=== PATIENT | male | born 1940 | race Caucasian/White ===

== ENCOUNTER 2017-06-20 16:05 | Inpatient (IN) | payer OTHER ==
[~2017-06-20] VITALS: Ht 172.7 cm; Wt 111.9 kg
[~2017-06-20 16:05] MED LIST: ALB5IS NEB; ALBUAER3 IN; ALLO100T; BUDE0.5S IN; DOC100C PO; FLUO40CA PO; INSR100KIT SC; SIMV-8 PO
[2017-06-20 16:51] LABS: Basophils # (auto) 0.1 uL; Basophils % (auto) 0.7 % (0.0-2.0); Eosinophils # (auto) 0.3 uL; Hematocrit 40.8 % (41.0-53.0); Hemoglobin 13.7 g/dL (13.5-17.5); Lymphocytes # (auto) 2.5 uL; Lymphocytes % (auto) 26.3 % (10.0-50.0); Mean Corpuscular Hemoglobin 28.8 pg (28.0-32.0); Mean Corpuscular Hgb Conc. 33.6 g/dL (32.0-36.0); Mean Corpuscular Volume 85.7 fL (80.0-100.0); Monocytes # (auto) 0.9 uL; Monocytes % (auto) 9.6 % (0.0-12.0); Neutrophils # (auto) 5.8 uL; Neutrophils % (auto) 60.4 % (37.0-80.0); Nucleated Red Blood Cells % 0.2 %; Platelet Count (auto) 271 10^3/uL (140-450); Red Blood Cells 4.76 10^6/uL (4.5-5.90); Red Cell Distribution Width 14.4 % (11.8-14.3); White Blood Cell 9.6 10^3/uL (4.4-10.8)
[2017-06-20 17:17] LABS: Alanine Aminotransferase 36 U/L (16-61); Albumin 3.6 g/dL (3.4-5.0); Alkaline Phosphatase 113 U/L (45-117); Anion Gap 13 (5-15); Aspartate Aminotransferase 25 U/L (15-37); BUN/Creatinine Ratio 12.4; Bilirubin, Total 0.5 mg/dL (0.2-1.0); Blood Urea Nitrogen 28 mg/dL (7-18); Calcium 7.7 mg/dL (8.5-10.1); Carbon Dioxide 24 mmol/L (21-32); Chloride 94 mmol/L (98-107); GFR African American 36 mL/min; GFR Non-African American 30 mL/min; Glucose 396 mg/dL (74-106); Magnesium 2.9 mg/dL (1.6-2.6); Potassium 5.2 mmol/L (3.5-5.1); Sodium 131 mmol/L (136-145); Total Protein 7.6 g/dL (6.4-8.2)
[2017-06-20 17:23] LABS: INR 0.85 (0.9-1.15); Prothrombin Time 9.2 sec (9.37-12.3)
[2017-06-20] MEDS ORDERED: AZITHROMYCIN 500MG/ 250ML 250 ML IV ONE (17:45)
[2017-06-20] MEDS ORDERED: cefTRIAXone 1GM/10ml IVPUSH 10 ML IV ONE (17:45)
[2017-06-20] MEDS ORDERED: ALBUTEROL SULF 2.5 MG/0.5ML(0.5%) NEB SOLN NEB STA (18:07)
[2017-06-20] MEDS ORDERED: DEXTROSE (50%) 50ML SYRG IV ONE (18:15)
[2017-06-20] MEDS ORDERED: InsuLIN REG 1unit/0.01ml Soln (100units/ml) SC ONE (18:15)
[2017-06-20] MEDS ORDERED: SODIUM BICARBONATE 8.4% INJ 50ML SYRINGE IV ONE (18:15)
[2017-06-20] MEDS ORDERED: CALCIUM GLUC 4.65meq/50ml D5AE 50 ML IV ONE (18:15)
[2017-06-20] MEDS ORDERED: IPRATROPIUM BROM 0.5 MG/2.5ML INH SOL NEB ONE (18:15)
[2017-06-20] MEDS ORDERED: InsuLIN REG 1unit/0.01ml Soln (100units/ml) IV ONE (18:15)
[2017-06-20] MEDS ORDERED: methylPREDNISolone SOD SUCC 125 MG/2 ML VL IV ONE (18:15)
[2017-06-20] MEDS ORDERED: ALBUTEROL SULF 2.5 MG/0.5ML(0.5%) NEB SOLN NEB ONE (18:15)
[2017-06-20 18:45] LABS: Lactic Acid w/Reflex 2.5 mmol/L (0.4-2.0)
[2017-06-20] MEDS ORDERED: LORazepam 0.5 MG TAB PO PRN (19:00)
[2017-06-20] MEDS ORDERED: DOCUSATE SOD 100 MG CAP PO PRN (19:00)
[2017-06-20] MEDS ORDERED: NITROGLYCERIN 0.4 MG SL TAB SL PRN (19:00)
[2017-06-20] MEDS ORDERED: SODIUM POLYSTYRENE SULF 15GM/60ML SUSP PO ONE (19:00)
[2017-06-20] MEDS ORDERED: MORPHINE SULFATE 4 MG/ML SYR/VIAL IV PRN (19:00)
[2017-06-20] MEDS ORDERED: HYDROcodone-ACET 5/325MG TAB PO PRN (19:00)
[2017-06-20] MEDS ORDERED: ACETAMINOPHEN 500 MG TAB PO PRN (19:00)
[2017-06-20] MEDS ORDERED: LACTULOSE 20Gm/30ML SOLN PO PRN ×2 (19:00)
[2017-06-20] MEDS ORDERED: OSELTAMIVIR 75 MG CAP PO ONE (19:00)
[2017-06-20] MEDS ORDERED: DEXTROSE (50%) 50ML SYRG IV PRN (19:00)
[2017-06-20] MEDS ORDERED: ALBUTEROL SULF 2.5 MG/0.5ML(0.5%) NEB SOLN NEB PRN (19:00)
[2017-06-20] MEDS: SODIUM CHLORIDE 0.9% 1,000 ML IV SCH (19:56)
[2017-06-20] MEDS: ACCU-CHEK COMFORT CURVE STRIP VI SCH (20:00)
[2017-06-20] MEDS: InsuLIN REG 1unit/0.01ml Soln (100units/ml) SC SCH (20:00)
[2017-06-20 20:22] VITALS: BP 115/74
[2017-06-20 20:30] VITALS: BP 119/76
[2017-06-20] MEDS ORDERED: PANTOPRAZOLE 40 MG/10 ML VIAL IV ONE (20:30)
[2017-06-20] MEDS ORDERED: OSELTAMIVIR 30 MG CAP PO ONE (20:30)
[2017-06-20 21:20] LABS: CRP High Sensitivity 0.46 mg/dL (< 0.3)
[2017-06-20] MEDS: METOPROLOL TARTRATE 25 MG TAB PO SCH (21:32)
[2017-06-20 22:00] VITALS: BP 119/76
[2017-06-20] MEDS ORDERED: OSELTAMIVIR 30 MG CAP PO SCH (22:00)
[2017-06-20] MEDS ORDERED: OSELTAMIVIR 75 MG CAP PO SCH (22:00)
[2017-06-20] MEDS: TEMAZEPAM 15 MG CAP PO PRN (22:11)
[2017-06-20] MEDS: MORPHINE SULFATE 4 MG/ML SYR/VIAL IV PRN (23:04)
[2017-06-21] MEDS: IPRATROPIUM BROM 0.5 MG/2.5ML INH SOL NEB SCH ×4 (00:05→19:30)
[2017-06-21] MEDS: ALBUTEROL SULF 2.5 MG/0.5ML(0.5%) NEB SOLN NEB SCH ×4 (00:05→19:30)
[2017-06-21] MEDS: BUDESONIDE (INHALATION) 0.5 MG/2 ML NEB NEB SCH ×3 (00:07→19:35)
[2017-06-21] MEDS: ACCU-CHEK COMFORT CURVE STRIP VI SCH ×7 (00:14→23:49)
[2017-06-21] MEDS: InsuLIN REG 1unit/0.01ml Soln (100units/ml) SC SCH ×7 (00:14→23:50)
[2017-06-21 00:54] LABS: Hemoglobin 12.5 g/dL (13.5-17.5)
[2017-06-21 01:03] LABS: Alcohol, Urine < 3.0 mg/dL (0-5); Amphetamine Screen, Urine NEGATIVE (NEGATIVE); Barbiturate Scree,Urine NEGATIVE (NEGATIVE); Benzodiazephine Screen, Urine NEGATIVE (NEGATIVE); Cannabinoid Screen, Urine NEGATIVE (NEGATIVE); Cocaine Screen, Urine NEGATIVE (NEGATIVE); Opiate Scree,Urine NEGATIVE (NEGATIVE); Phencyclidine Screen, Urine NEGATIVE (NEGATIVE)
[2017-06-21 01:13] LABS: Urine Bacteria FEW /hpf (None Seen); Urine Blood Negative /uL (Negative); Urine Hyaline Cast FEW /lpf (0 - 2); Urine Mucus FEW (None Seen); Urine Specific Gravity 1.018 (1.001-1.035); Urine WBC 6 /hpf (0 - 3)
[2017-06-21] MEDS: PROMETHAZINE HCL 25 MG/ML 1ML IV PRN ×2 (03:15→20:19)
[2017-06-21] MEDS: MORPHINE SULFATE 4 MG/ML SYR/VIAL IV PRN ×3 (03:15→20:19)
[2017-06-21 05:00] VITALS: BP 118/90
[2017-06-21 06:12] LABS: Basophils # (auto) 0 uL; Basophils % (auto) 0.1 % (0.0-2.0); Eosinophils # (auto) 0 uL; Eosinophils % (auto) 0.1 % (0.0-7.0); Hematocrit 36.6 % (41.0-53.0); Hemoglobin 12.5 g/dL (13.5-17.5); Lymphocytes % (auto) 12.3 % (10.0-50.0); Mean Corpuscular Hemoglobin 29.4 pg (28.0-32.0); Mean Corpuscular Hgb Conc. 34.3 g/dL (32.0-36.0); Mean Corpuscular Volume 85.7 fL (80.0-100.0); Monocytes # (auto) 0.1 uL; Monocytes % (auto) 0.9 % (0.0-12.0); Neutrophils # (auto) 7.2 uL; Neutrophils % (auto) 86.6 % (37.0-80.0); Platelet Count (auto) 183 10^3/uL (140-450); Red Blood Cells 4.27 10^6/uL (4.5-5.90); Red Cell Distribution Width 14.3 % (11.8-14.3); White Blood Cell 8.3 10^3/uL (4.4-10.8)
[2017-06-21 06:27] LABS: Albumin 3.3 g/dL (3.4-5.0); BUN/Creatinine Ratio 11.6; Bilirubin, Total 0.4 mg/dL (0.2-1.0); Calcium 7.7 mg/dL (8.5-10.1); Potassium 4.7 mmol/L (3.5-5.1)
[2017-06-21] MEDS: SODIUM CHLORIDE 0.9% 1,000 ML IV SCH ×2 (08:09→21:54)
[2017-06-21 09:00] VITALS: BP 155/93
[2017-06-21 09:04] LABS: Hematocrit 34.6 % (41.0-53.0); Hemoglobin 11.4 g/dL (13.5-17.5)
[2017-06-21] MEDS ORDERED: PANTOPRAZOLE 40 MG TAB PO SCH (10:00)
[2017-06-21] MEDS ORDERED: ENOXAPARIN SOD 40 MG/0.4 ML SYRINGE SC SCH (10:00)
[2017-06-21] MEDS ORDERED: ASPirin 81 mg TAB PO SCH (10:00)
[2017-06-21] MEDS: cefTRIAXone 1GM/10ml IVPUSH 10 ML IV SCH (10:40)
[2017-06-21] MEDS: AZITHROMYCIN 500MG/ 250ML 250 ML IV SCH (10:40)
[2017-06-21] MEDS: FLUoxetine HCL 20 MG CAP PO SCH (10:44)
[2017-06-21] MEDS: PANTOPRAZOLE 40 MG TAB PO SCH (10:44)
[2017-06-21] MEDS: METOPROLOL TARTRATE 25 MG TAB PO SCH ×2 (10:44→21:53)
[2017-06-21] MEDS: ALLOPURINOL 100 MG TAB PO SCH (10:45)
[2017-06-21 11:58] LABS: Hematocrit 34.5 % (41.0-53.0); Hemoglobin 11.3 g/dL (13.5-17.5)
[2017-06-21 13:00] VITALS: BP 139/87
[2017-06-21 16:39] VITALS: BP 136/86
[2017-06-21] MEDS ORDERED: PATIENTS OWN MEDICATION (Simvastatin 1 TAB) PO SCH (18:00)
[2017-06-21 21:31] VITALS: BP 139/92
[2017-06-21] MEDS: ATORVASTATIN 20 MG TAB PO SCH (21:53)
[2017-06-21] MEDS: TEMAZEPAM 15 MG CAP PO PRN (21:53)
[2017-06-21] MEDS ORDERED: TEMAZEPAM 15 MG CAP PO ONE (22:30)
[2017-06-22] MEDS: IPRATROPIUM BROM 0.5 MG/2.5ML INH SOL NEB SCH ×4 (00:57→19:35)
[2017-06-22] MEDS: ALBUTEROL SULF 2.5 MG/0.5ML(0.5%) NEB SOLN NEB SCH ×4 (00:57→19:35)
[2017-06-22] MEDS: InsuLIN REG 1unit/0.01ml Soln (100units/ml) SC SCH ×6 (03:48→23:53)
[2017-06-22] MEDS: ACCU-CHEK COMFORT CURVE STRIP VI SCH ×6 (03:48→23:52)
[2017-06-22 05:26] VITALS: BP 119/57
[2017-06-22 07:16] LABS: Basophils # (auto) 0 uL; Eosinophils # (auto) 0 uL; Hematocrit 34.8 % (41.0-53.0); Hemoglobin 11.5 g/dL (13.5-17.5); Lymphocytes # (auto) 1.6 uL; Lymphocytes % (auto) 11.8 % (10.0-50.0); Mean Corpuscular Hgb Conc. 33.1 g/dL (32.0-36.0); Mean Corpuscular Volume 84.6 fL (80.0-100.0); Monocytes # (auto) 0.8 uL; Monocytes % (auto) 5.5 % (0.0-12.0); Neutrophils # (auto) 11.4 uL; Neutrophils % (auto) 82.7 % (37.0-80.0); Platelet Count (auto) 195 10^3/uL (140-450); Red Blood Cells 4.12 10^6/uL (4.5-5.90); Red Cell Distribution Width 14.7 % (11.8-14.3); White Blood Cell 13.8 10^3/uL (4.4-10.8)
[2017-06-22 07:35] LABS: BUN/Creatinine Ratio 20.3; Calcium 7.7 mg/dL (8.5-10.1); Magnesium 2.8 mg/dL (1.6-2.6); Potassium 4.2 mmol/L (3.5-5.1)
[2017-06-22] MEDS: BUDESONIDE (INHALATION) 0.5 MG/2 ML NEB NEB SCH ×2 (07:45→19:35)
[2017-06-22 09:00] VITALS: BP 135/77
[2017-06-22] MEDS: AZITHROMYCIN 500MG/ 250ML 250 ML IV SCH (10:27)
[2017-06-22] MEDS: cefTRIAXone 1GM/10ml IVPUSH 10 ML IV SCH (10:27)
[2017-06-22] MEDS: FLUoxetine HCL 20 MG CAP PO SCH (10:28)
[2017-06-22] MEDS: METOPROLOL TARTRATE 25 MG TAB PO SCH ×2 (10:28→21:53)
[2017-06-22] MEDS: PANTOPRAZOLE 40 MG TAB PO SCH (10:28)
[2017-06-22] MEDS: ALLOPURINOL 100 MG TAB PO SCH (10:29)
[2017-06-22] MEDS: SODIUM CHLORIDE 0.9% 1,000 ML IV SCH (10:49)
[2017-06-22 13:00] VITALS: BP 104/53
[2017-06-22 14:03] LABS: Lactic Acid w/Reflex 2.8 mmol/L (0.4-2.0)
[2017-06-22 16:35] VITALS: BP 126/76
[2017-06-22] MEDS ORDERED: TEMAZEPAM 15 MG CAP PO PRN (17:45)
[2017-06-22] MEDS: ATORVASTATIN 20 MG TAB PO SCH (21:52)
[2017-06-22 22:43] VITALS: BP 136/78
[2017-06-23] MEDS: ALBUTEROL SULF 2.5 MG/0.5ML(0.5%) NEB SOLN NEB SCH ×3 (00:40→11:58)
[2017-06-23] MEDS: IPRATROPIUM BROM 0.5 MG/2.5ML INH SOL NEB SCH ×3 (00:40→11:58)
[2017-06-23] MEDS: SODIUM CHLORIDE 0.9% 1,000 ML IV SCH ×2 (00:53→13:29)
[2017-06-23] MEDS: ACCU-CHEK COMFORT CURVE STRIP VI SCH ×4 (04:16→16:00)
[2017-06-23] MEDS: InsuLIN REG 1unit/0.01ml Soln (100units/ml) SC SCH ×4 (04:25→16:00)
[2017-06-23 05:25] VITALS: BP 148/80
[2017-06-23 06:26] LABS: Basophils # (auto) 0.1 uL; Basophils % (auto) 0.7 % (0.0-2.0); Eosinophils # (auto) 0.1 uL; Hematocrit 34.7 % (41.0-53.0); Hemoglobin 11.6 g/dL (13.5-17.5); Lymphocytes # (auto) 2.7 uL; Lymphocytes % (auto) 26.6 % (10.0-50.0); Mean Corpuscular Hemoglobin 28.7 pg (28.0-32.0); Mean Corpuscular Hgb Conc. 33.4 g/dL (32.0-36.0); Mean Corpuscular Volume 86.1 fL (80.0-100.0); Monocytes # (auto) 0.7 uL; Monocytes % (auto) 7.4 % (0.0-12.0); Neutrophils # (auto) 6.5 uL; Neutrophils % (auto) 64.3 % (37.0-80.0); Platelet Count (auto) 168 10^3/uL (140-450); Red Blood Cells 4.03 10^6/uL (4.5-5.90); Red Cell Distribution Width 14.5 % (11.8-14.3); White Blood Cell 10.2 10^3/uL (4.4-10.8)
[2017-06-23 06:40] LABS: BUN/Creatinine Ratio 19.4; Calcium 7.5 mg/dL (8.5-10.1); Magnesium 2.7 mg/dL (1.6-2.6); Phosphorus 4.3 mg/dL (2.5-4.90); Potassium 3.7 mmol/L (3.5-5.1)
[2017-06-23] MEDS ORDERED: glyBURIDE 5 MG TAB PO SCH (07:00)
[2017-06-23] MEDS: BUDESONIDE (INHALATION) 0.5 MG/2 ML NEB NEB SCH (07:20)
[2017-06-23 08:19] VITALS: BP 155/101
[2017-06-23] MEDS: FLUoxetine HCL 20 MG CAP PO SCH (09:53)
[2017-06-23] MEDS: METOPROLOL TARTRATE 25 MG TAB PO SCH (09:53)
[2017-06-23] MEDS: AZITHROMYCIN 500MG/ 250ML 250 ML IV SCH (09:53)
[2017-06-23] MEDS: PANTOPRAZOLE 40 MG TAB PO SCH (09:54)
[2017-06-23] MEDS: ALLOPURINOL 100 MG TAB PO SCH (09:54)
[2017-06-23] MEDS: cefTRIAXone 1GM/10ml IVPUSH 10 ML IV SCH (09:54)
[2017-06-23 12:51] VITALS: BP 152/104
[2017-06-23] MEDS ORDERED: AMOXICILLIN/CLAVUL 875 MG TAB PO ONE (13:15)
== END 2017-06-23 17:10 | disposition home health service (06) | DRG 377 ==
LOC: ER 16:05 → TELE 16:06 → TELE-WESTW 20:30
PROVIDERS: ADMIT Internal Medicine; ATTEND Internal Medicine
DX: K92.1 Melena (principal); N17.0 Acute kidney failure with tubular necrosis; J18.1 Lobar pneumonia, unspecified organism; E11.22 Type 2 diabetes mellitus with diabetic chronic kidney disease; E11.65 Type 2 diabetes mellitus with hyperglycemia; N18.3 Chronic kidney disease, stage 3 (moderate); J44.0 Chronic obstructive pulmonary disease with (acute) lower respiratory infection; J44.1 Chronic obstructive pulmonary disease with (acute) exacerbation; E87.5 Hyperkalemia; E66.01 Morbid (severe) obesity due to excess calories; S39.91XA Unspecified injury of abdomen, initial encounter; X58.XXXA Exposure to other specified factors, initial encounter; I13.10 Hypertensive heart and chronic kidney disease without heart failure, with stage 1 through stage 4 chronic kidney disease, or unspecified chronic kidney disease; I25.10 Atherosclerotic heart disease of native coronary artery without angina pectoris; F32.9 Major depressive disorder, single episode, unspecified; F41.9 Anxiety disorder, unspecified; K59.00 Constipation, unspecified; Z68.37 Body mass index [BMI] 37.0-37.9, adult; Z82.3 Family history of stroke; Z83.3 Family history of diabetes mellitus; Z87.11 Personal history of peptic ulcer disease; Z91.19 Patient's noncompliance with other medical treatment and regimen; Z90.89 Acquired absence of other organs; Z71.89 Other specified counseling; Z87.891 Personal history of nicotine dependence; Z79.4 Long term (current) use of insulin; Y93.89 Activity, other specified; Y92.89 Other specified places as the place of occurrence of the external cause; Y99.8 Other external cause status
CPT/HCPCS: 36415; 71045; 74176; 80048; 80053; 80061; 80307; 81001; 82150; 82270; 82378; 82550; 82962; 83036; 83605; 83690; 83735; 83880; 84100; 84132; 84484; 85014; 85018; 85025; 85045; 85610; 85652; 85730; 86141; 86850; 86900; 86901; 87040; 87070; 87081; 87205; 87804; 93005; 94640; 94761; 96365; 96375; C9113; G9035; J0610; J1815

== ENCOUNTER 2018-11-25 14:23 | Emergency (ER) | payer OTHER ==
[~2018-11-25 14:23] MED LIST changes: +AMIT25TA9 PO; +AMLO5TAB15 PO; +FLUO20CA19 PO; +IPRA0.03; +METO-158 PO; +TIOT17SP IN; +TRAZ50TA2 PO
[2018-11-25 15:03] LABS: Basophils # (auto) 0 uL; Basophils % (auto) 0.4 % (0.0-2.0); Eosinophils # (auto) 0.2 uL; Eosinophils % (auto) 2.1 % (0.0-7.0); Hematocrit 34.1 % (41.0-53.0); Hemoglobin 11.2 g/dL (13.5-17.5); Lymphocytes # (auto) 2.5 uL; Lymphocytes % (auto) 26.2 % (10.0-50.0); Mean Corpuscular Hemoglobin 29.2 pg (28.0-32.0); Mean Corpuscular Hgb Conc. 32.9 g/dL (32.0-36.0); Mean Corpuscular Volume 88.8 fL (80.0-100.0); Monocytes # (auto) 0.8 uL; Neutrophils # (auto) 6.1 uL; Neutrophils % (auto) 63.3 % (37.0-80.0); Platelet Count (auto) 157 10^3/uL (140-450); Red Blood Cells 3.84 10^6/uL (4.5-5.90); Red Cell Distribution Width 14.4 % (11.8-14.3); White Blood Cell 9.6 10^3/uL (4.4-10.8)
[2018-11-25 15:15] LABS: Alanine Aminotransferase 13 U/L (16-61); Albumin 3.6 g/dL (3.4-5.0); Anion Gap 9 (5-15); Aspartate Aminotransferase 10 U/L (15-37); BUN/Creatinine Ratio 7.6; Blood Urea Nitrogen 37 mg/dL (7-18); Calcium 7.6 mg/dL (8.5-10.1); Carbon Dioxide 26 mmol/L (21-32); Chloride 104 mmol/L (98-107); GFR African American 15 mL/min; GFR Non-African American 12 mL/min; Glucose 114 mg/dL (74-106); Potassium 4.7 mmol/L (3.5-5.1); Sodium 139 mmol/L (136-145)
[2018-11-25 15:20] LABS: Alkaline Phosphatase 88 U/L (45-117); Bilirubin, Total 0.6 mg/dL (0.2-1.0)
[2018-11-25] MEDS ORDERED: SODIUM CHLORIDE 0.9% 1,000 ML IV ONE (16:04)
[2018-11-25] MEDS ORDERED: KETOROLAC TROMETH 15 mg/ml 1ML VL IV ONE (16:15)
[2018-11-25] MEDS ORDERED: PROMETHAZINE HCL 25 MG/ML 1ML IV PRN (16:15)
[2018-11-25 16:34] LABS: Magnesium 2.6 mg/dL (1.6-2.6)
[2018-11-25] MEDS ORDERED: cefTRIAXone 1GM/50ML D5W 50 ML IV ONE (18:15)
[2018-11-25 18:43] VITALS: BP 138/80
== END 2018-11-25 19:07 | disposition home or self-care (01) ==
LOC: ER 14:23
DX: K42.9 Umbilical hernia without obstruction or gangrene (principal); J18.9 Pneumonia, unspecified organism; K59.01 Slow transit constipation; I10 Essential (primary) hypertension; E11.9 Type 2 diabetes mellitus without complications; J44.9 Chronic obstructive pulmonary disease, unspecified; Z79.4 Long term (current) use of insulin; Z79.899 Other long term (current) drug therapy
CPT/HCPCS: 36415; 71046; 74176; 80053; 83690; 83735; 84484; 85025; 93005; 96365; 96375; 99284; J0696; J1885; J2550; J7030

== ENCOUNTER 2019-09-25 23:42 | Inpatient (IN) | payer OTHER ==
[~2019-09-25] VITALS: Ht 167.6 cm; Wt 105.8 kg
[~2019-09-25 23:42] MED LIST changes: +ATOR10TA52 PO; +ERGO2000 PO; +FERR-20 PO; +INSLANTI SC; +PANT40TA2 PO
[2019-09-26] VITALS (12 sets, daily range): BP systolic 134–184; BP diastolic 61–101
[2019-09-26] MEDS ORDERED: ONDANSETRON HCL 4 MG/2 ML VIAL IV ONE
[2019-09-26] MEDS ORDERED: MORPHINE SULFATE 4 MG/ML SYR/VIAL IV ONE
[2019-09-26 00:33] LABS: Basophils # (auto) 0.1 10 ^3/uL (0-0.2); Basophils % (auto) 0.7 % (0.0-2.0); Eosinophils # (auto) 0.2 10 ^3/uL (0-0.8); Eosinophils % (auto) 2.9 % (0.0-7.0); Hematocrit 33.9 % (41.0-53.0); Hemoglobin 11.2 g/dL (13.5-17.5); Lymphocytes # (auto) 2.9 10 ^3/uL (0.4-5.4); Mean Corpuscular Hemoglobin 29.7 pg (28.0-32.0); Mean Corpuscular Hgb Conc. 33.1 g/dL (32.0-36.0); Mean Corpuscular Volume 89.7 fL (80.0-100.0); Monocytes # (auto) 0.7 10 ^3/uL (0-1.3); Monocytes % (auto) 8.6 % (0.0-12.0); Neutrophils # (auto) 3.8 10 ^3/uL (1.6-8.6); Neutrophils % (auto) 49.8 % (37.0-80.0); Platelet Count (auto) 183 10^3/uL (140-450); Red Blood Cells 3.78 10^6/uL (4.5-5.90); Red Cell Distribution Width 14.6 % (11.8-14.3); White Blood Cell 7.7 10^3/uL (4.4-10.8)
[2019-09-26] MEDS ORDERED: HYDROmorphone HCL 2 MG/ML VL IV ONE ×3 (00:45→02:00)
[2019-09-26 00:48] LABS: INR 1.03 (0.9-1.15); Partial Thromboplastin Time 28.9 sec (23.64-32.05)
[2019-09-26 00:51] LABS: Albumin 3.6 g/dL (3.4-5.0); Anion Gap 12 (5-15); BUN/Creatinine Ratio 2.9; Blood Urea Nitrogen 9 mg/dL (7-18); Calcium 7.3 mg/dL (8.5-10.1); Carbon Dioxide 23 mmol/L (21-32); Chloride 97 mmol/L (98-107); GFR African American 25 mL/min; GFR Non-African American 20 mL/min; Glucose 111 mg/dL (74-106); Magnesium 2.2 mg/dL (1.6-2.6); Potassium 3.2 mmol/L (3.5-5.1); Sodium 132 mmol/L (136-145)
[2019-09-26 00:56] LABS: Alanine Aminotransferase 17 U/L (16-61); Alkaline Phosphatase 114 U/L (45-117); Aspartate Aminotransferase 16 U/L (15-37); Bilirubin, Total 0.6 mg/dL (0.2-1.0); Total Protein 7.5 g/dL (6.4-8.2)
[2019-09-26] MEDS ORDERED: DEXTROSE (50%) 50ML SYRG IV PRN (03:45)
[2019-09-26] MEDS ORDERED: ONDANSETRON HCL 4 MG/2 ML VIAL IV PRN (03:45)
[2019-09-26] MEDS ORDERED: HYDROcodone-ACET 5/325MG TAB PO PRN (03:45)
[2019-09-26] MEDS ORDERED: DOCUSATE SOD 100 MG CAP PO PRN ×2 (03:45)
[2019-09-26] MEDS ORDERED: MORPHINE SULF INJ 2 MG/ML SYRINGE 1ML IV PRN (03:45)
[2019-09-26] MEDS ORDERED: ALBUTEROL SULF HFA 90MCG INH 200DOSE IN PRN (03:45)
[2019-09-26] MEDS ORDERED: ACETAMINOPHEN 325 MG TAB PO PRN ×2 (03:45)
[2019-09-26] MEDS: InsuLIN REG 1unit/0.01ml Soln (100units/ml) SC SCH ×5 (04:00→20:00)
[2019-09-26] MEDS: NITROGLYCERIN 0.4 MG SL TAB SL PRN ×2 (04:52→05:03)
[2019-09-26] MEDS: ACCU-CHEK COMFORT CURVE STRIP VI SCH ×5 (05:00→20:12)
[2019-09-26] MEDS: ONDANSETRON HCL 4 MG/2 ML VIAL IV PRN ×2 (05:09→17:53)
[2019-09-26 07:34] LABS: Basophils # (auto) 0 10 ^3/uL (0-0.2); Basophils % (auto) 0.6 % (0.0-2.0); Eosinophils # (auto) 0 10 ^3/uL (0-0.8); Eosinophils % (auto) 0.6 % (0.0-7.0); Hematocrit 31.5 % (41.0-53.0); Hemoglobin 10.5 g/dL (13.5-17.5); Lymphocytes % (auto) 19.8 % (10.0-50.0); Mean Corpuscular Hemoglobin 29.7 pg (28.0-32.0); Mean Corpuscular Hgb Conc. 33.2 g/dL (32.0-36.0); Mean Corpuscular Volume 89.4 fL (80.0-100.0); Monocytes # (auto) 0.2 10 ^3/uL (0-1.3); Monocytes % (auto) 4.5 % (0.0-12.0); Neutrophils # (auto) 3.6 10 ^3/uL (1.6-8.6); Neutrophils % (auto) 74.5 % (37.0-80.0); Nucleated Red Blood Cells % 0.1 %; Platelet Count (auto) 160 10^3/uL (140-450); Red Blood Cells 3.52 10^6/uL (4.5-5.90); Red Cell Distribution Width 14.7 % (11.8-14.3); White Blood Cell 4.9 10^3/uL (4.4-10.8)
[2019-09-26 07:50] LABS: Calcium 7.1 mg/dL (8.5-10.1); Potassium 3.7 mmol/L (3.5-5.1)
[2019-09-26 07:53] LABS: BUN/Creatinine Ratio 2.9
[2019-09-26] MEDS: FERROUS SULFATE 325 MG TAB PO SCH ×2 (07:53→17:46)
[2019-09-26] MEDS ORDERED: CARVEDILOL 3.125 MG TAB PO SCH (08:00)
[2019-09-26] MEDS: CLOPIDOGREL BISULFATE 75 MG TAB PO SCH (09:07)
[2019-09-26] MEDS: DOCUSATE SOD 100 MG CAP PO SCH (09:07)
[2019-09-26] MEDS: FLUoxetine HCL 20 MG CAP PO SCH (09:07)
[2019-09-26] MEDS: ASPirin 81 mg TAB PO SCH (09:07)
[2019-09-26] MEDS: ALLOPURINOL 100 MG TAB PO SCH (09:08)
[2019-09-26] MEDS: PANTOPRAZOLE 40 MG TAB PO SCH (09:08)
[2019-09-26] MEDS ORDERED: amLODIPine BESYLATE 5 MG TAB PO SCH (10:00)
[2019-09-26] MEDS: LISINOPRIL 5 MG TAB PO SCH ×2 (10:00→21:30)
[2019-09-26] MEDS ORDERED: LISINOPRIL 5 MG TAB PO SCH (10:00)
[2019-09-26] MEDS ORDERED: PATIENTS OWN MEDICATION (Atorvastatin Calcium 1 TAB) PO SCH (10:00)
[2019-09-26] MEDS: METOPROLOL TARTRATE 50 MG TAB PO SCH ×2 (10:00→18:30)
[2019-09-26] MEDS: amLODIPine BESYLATE 5 MG TAB PO SCH (10:00)
[2019-09-26] MEDS ORDERED: METOPROLOL TARTRATE 50 MG TAB PO SCH (10:00)
[2019-09-26] MEDS: MORPHINE SULF INJ 2 MG/ML SYRINGE 1ML IV PRN ×2 (12:56→17:47)
[2019-09-26] MEDS ORDERED: ALUM & MAG HYDROX-SIMETH LIQ(MAALOX) 30 ML PO PRN (15:15)
[2019-09-26] MEDS ORDERED: PATIENTS OWN MEDICATION (Simvastatin 1 TAB) PO SCH (18:00)
[2019-09-26] MEDS: ATORVASTATIN 20 MG TAB PO SCH (21:29)
[2019-09-27] MEDS: ACCU-CHEK COMFORT CURVE STRIP VI SCH ×6 (00:31→21:08)
[2019-09-27] MEDS: METOPROLOL TARTRATE 50 MG TAB PO SCH ×3 (01:12→19:48)
[2019-09-27] MEDS: InsuLIN REG 1unit/0.01ml Soln (100units/ml) SC SCH ×6 (03:59→21:10)
[2019-09-27 05:30] VITALS: BP 148/81
[2019-09-27 07:00] LABS: Potassium 3.8 mmol/L (3.5-5.1)
[2019-09-27] MEDS ORDERED: SODIUM CHL 0.9% 1000 ML BAG XX ONE (07:00)
[2019-09-27 07:07] LABS: Amylase 38 U/L (25-115); Lipase 67 U/L (73-393)
[2019-09-27 07:12] LABS: Albumin 3.3 g/dL (3.4-5.0); BUN/Creatinine Ratio 5.2; Bilirubin, Total 0.7 mg/dL (0.2-1.0); Calcium 7.4 mg/dL (8.5-10.1)
[2019-09-27] MEDS: FERROUS SULFATE 325 MG TAB PO SCH ×2 (08:00→18:00)
[2019-09-27] MEDS ORDERED: ADENOSINE 89 MG in GIVE UN-DILUTED 0 ML IV STA (08:14)
[2019-09-27 09:00] VITALS: BP 159/82
[2019-09-27 09:14] VITALS: BP 152/72
[2019-09-27] MEDS: amLODIPine BESYLATE 5 MG TAB PO SCH (10:00)
[2019-09-27] MEDS: FLUoxetine HCL 20 MG CAP PO SCH (10:54)
[2019-09-27] MEDS: CLOPIDOGREL BISULFATE 75 MG TAB PO SCH (10:54)
[2019-09-27] MEDS: PANTOPRAZOLE 40 MG TAB PO SCH (10:54)
[2019-09-27] MEDS: ASPirin 81 mg TAB PO SCH (10:55)
[2019-09-27] MEDS: ALLOPURINOL 100 MG TAB PO SCH (10:55)
[2019-09-27] MEDS: LISINOPRIL 5 MG TAB PO SCH ×2 (10:55→22:04)
[2019-09-27] MEDS: DOCUSATE SOD 100 MG CAP PO SCH (10:55)
[2019-09-27] MEDS: MORPHINE SULF INJ 2 MG/ML SYRINGE 1ML IV PRN ×2 (10:57→21:10)
[2019-09-27] MEDS ORDERED: DOXYCYCLINE 100 MG TAB/CAP PO ONE (12:30)
[2019-09-27 13:00] VITALS: BP 166/84
[2019-09-27] MEDS ORDERED: CLOP75TA28 PO (15:02)
[2019-09-27] MEDS ORDERED: AMLO5TAB15 PO (15:02)
[2019-09-27] MEDS ORDERED: GAB100C PO (15:02)
[2019-09-27] MEDS ORDERED: PANT40TA2 PO (15:02)
[2019-09-27] MEDS ORDERED: IBUP600T27 PO (15:02)
[2019-09-27] MEDS ORDERED: DOX100T PO (15:02)
[2019-09-27] MEDS ORDERED: ASPI81CH43 PO (15:02)
[2019-09-27 17:00] VITALS: BP 146/76
[2019-09-27] MEDS ORDERED: EPOETIN ALFA 4,000 UNIT/ML VL SC ONE (21:00)
[2019-09-27] MEDS: ATORVASTATIN 20 MG TAB PO SCH (22:00)
[2019-09-27] MEDS: DOXYCYCLINE 100 MG TAB/CAP PO SCH (22:02)
[2019-09-28] MEDS: METOPROLOL TARTRATE 50 MG TAB PO SCH ×3 (02:00→18:30)
[2019-09-28] MEDS: InsuLIN REG 1unit/0.01ml Soln (100units/ml) SC SCH ×7 (04:00→23:51)
[2019-09-28] MEDS: ACCU-CHEK COMFORT CURVE STRIP VI SCH ×7 (04:00→23:51)
[2019-09-28] MEDS: MORPHINE SULF INJ 2 MG/ML SYRINGE 1ML IV PRN ×5 (04:51→20:32)
[2019-09-28 05:36] VITALS: BP 137/72
[2019-09-28] MEDS ORDERED: LIDOCAINE 2%HCL (LOCAL ANESTH.) INJ 20ML MDV ONE (07:36)
[2019-09-28] MEDS ORDERED: IODIXANOL 320MG/ML 100ML BTL IV ONE (07:36)
[2019-09-28] MEDS ORDERED: fentaNYL CITRATE 100 MCG/2 ML VL ONE (08:05)
[2019-09-28] MEDS ORDERED: VERAPAMIL 2.5MG/ML INJ 2ML VIAL IV ONE (08:05)
[2019-09-28] MEDS ORDERED: ANGIOMAX 250 MG VIAL IV ONE (08:05)
[2019-09-28] MEDS ORDERED: HEPARIN SODIUM (PORCINE) 5000 UNITS/ML 1ML VIAL ONE (08:05)
[2019-09-28] MEDS ORDERED: MIDAZOLAM HCL 1MG/1ML-2 ML VIAL ONE (08:06)
[2019-09-28] MEDS ORDERED: SODIUM CHL 0.9% 0 ML ONE (08:06)
[2019-09-28 09:00] VITALS: BP 124/72
[2019-09-28] MEDS: PANTOPRAZOLE 40 MG TAB PO SCH (09:30)
[2019-09-28] MEDS: DOCUSATE SOD 100 MG CAP PO SCH (09:30)
[2019-09-28] MEDS: CLOPIDOGREL BISULFATE 75 MG TAB PO SCH (09:30)
[2019-09-28] MEDS: DOXYCYCLINE 100 MG TAB/CAP PO SCH ×2 (09:30→21:13)
[2019-09-28] MEDS: FERROUS SULFATE 325 MG TAB PO SCH ×2 (09:31→18:30)
[2019-09-28] MEDS: FLUoxetine HCL 20 MG CAP PO SCH (09:31)
[2019-09-28] MEDS: ALLOPURINOL 100 MG TAB PO SCH (09:31)
[2019-09-28] MEDS: ASPirin 81 mg TAB PO SCH (09:31)
[2019-09-28] MEDS: amLODIPine BESYLATE 5 MG TAB PO SCH (09:36)
[2019-09-28] MEDS: LISINOPRIL 5 MG TAB PO SCH ×2 (10:00→21:12)
[2019-09-28 13:00] VITALS: BP 123/71
[2019-09-28 16:51] VITALS: BP 150/72
[2019-09-28] MEDS: ATORVASTATIN 20 MG TAB PO SCH (21:13)
[2019-09-28 22:41] VITALS: BP 124/70
[2019-09-29] MEDS: METOPROLOL TARTRATE 50 MG TAB PO SCH ×2 (02:00→08:36)
[2019-09-29] MEDS: MORPHINE SULF INJ 2 MG/ML SYRINGE 1ML IV PRN ×2 (02:04→11:12)
[2019-09-29] MEDS: InsuLIN REG 1unit/0.01ml Soln (100units/ml) SC SCH ×3 (04:00→12:00)
[2019-09-29] MEDS: ACCU-CHEK COMFORT CURVE STRIP VI SCH ×3 (04:14→12:00)
[2019-09-29 05:54] VITALS: BP 142/77
[2019-09-29 06:30] LABS: Hematocrit 31.1 % (41.0-53.0); Hemoglobin 10.7 g/dL (13.5-17.5)
[2019-09-29 06:37] LABS: Potassium 3.6 mmol/L (3.5-5.1)
[2019-09-29 06:40] LABS: BUN/Creatinine Ratio 7.3; Calcium 7.5 mg/dL (8.5-10.1)
[2019-09-29] MEDS ORDERED: SODIUM CHL 0.9% 1000 ML BAG XX ONE (07:00)
[2019-09-29] MEDS: CLOPIDOGREL BISULFATE 75 MG TAB PO SCH (08:29)
[2019-09-29] MEDS: DOXYCYCLINE 100 MG TAB/CAP PO SCH (08:29)
[2019-09-29] MEDS: FERROUS SULFATE 325 MG TAB PO SCH (08:29)
[2019-09-29] MEDS: ASPirin 81 mg TAB PO SCH (08:30)
[2019-09-29] MEDS: PANTOPRAZOLE 40 MG TAB PO SCH (08:30)
[2019-09-29] MEDS: DOCUSATE SOD 100 MG CAP PO SCH (08:30)
[2019-09-29] MEDS: ALLOPURINOL 100 MG TAB PO SCH (08:30)
[2019-09-29] MEDS: FLUoxetine HCL 20 MG CAP PO SCH (08:31)
[2019-09-29] MEDS: LISINOPRIL 5 MG TAB PO SCH (08:36)
[2019-09-29 09:00] VITALS: BP 126/70
[2019-09-29] MEDS: amLODIPine BESYLATE 5 MG TAB PO SCH (10:00)
[2019-09-29 12:09] VITALS: BP 126/70
[2019-09-29 13:00] VITALS: BP 128/71
[2019-09-29] MEDS ORDERED: EPOETIN ALFA 10,000 UNIT/1 ML VIAL SC ONE (21:00)
== END 2019-09-29 14:17 | disposition home or self-care (01) | DRG 286 ==
LOC: ER 23:45 → TELE-WESTW 23:46
PROVIDERS: ADMIT Hospitalist; ATTEND Hospitalist
PROC: B211YZZ Fluoroscopy of Multiple Coronary Arteries using Other Contrast (ICD-10-PCS; principal; 2019-09-28)
DX: R07.89 Other chest pain (principal); N18.6 End stage renal disease; I13.2 Hypertensive heart and chronic kidney disease with heart failure and with stage 5 chronic kidney disease, or end stage renal disease; I50.30 Unspecified diastolic (congestive) heart failure; J44.1 Chronic obstructive pulmonary disease with (acute) exacerbation; J45.901 Unspecified asthma with (acute) exacerbation; E66.01 Morbid (severe) obesity due to excess calories; E78.5 Hyperlipidemia, unspecified; J44.9 Chronic obstructive pulmonary disease, unspecified; E11.22 Type 2 diabetes mellitus with diabetic chronic kidney disease; E11.40 Type 2 diabetes mellitus with diabetic neuropathy, unspecified; M10.9 Gout, unspecified; F32.9 Major depressive disorder, single episode, unspecified; D63.1 Anemia in chronic kidney disease; F41.9 Anxiety disorder, unspecified; Z99.2 Dependence on renal dialysis; Z79.51 Long term (current) use of inhaled steroids; Z79.82 Long term (current) use of aspirin; Z79.4 Long term (current) use of insulin; Z68.37 Body mass index [BMI] 37.0-37.9, adult
CPT/HCPCS: 36415; 71045; 71250; 78452; 80048; 80053; 80061; 82150; 82728; 82962; 83540; 83550; 83690; 83735; 84100; 84484; 85014; 85018; 85025; 85610; 85730; 87081; 90935; 93005; 93017; 96374; 96375; 96376; 97163; 99152; G0378; J0153; J1815; J2250; J2405; Q9967

== ENCOUNTER 2020-08-06 16:41 | Emergency (ER) | payer OTHER ==
[~2020-08-06] VITALS: Ht 167.6 cm; Wt 99.8 kg
[~2020-08-06 16:41] MED LIST changes: +AMLO-489 PO; -AMLO5TAB15 PO; +ASPI81CH43 PO; +DOX100T PO; +GAB100C PO; +IBUP600T27 PO
[2020-08-06] MEDS ORDERED: SODIUM CHLORIDE 0.9% 1,000 ML IVB ONE (17:30)
[2020-08-06] MEDS ORDERED: THIAMINE 100mg/ml INJ (200mg/2ml VIAL) IV ONE (17:30)
[2020-08-06 17:34] LABS: Basophils # (auto) 0 10 ^3/uL (0-0.2); Basophils % (auto) 0.6 % (0.0-2.0); Eosinophils # (auto) 0.2 10 ^3/uL (0-0.8); Eosinophils % (auto) 2.7 % (0.0-7.0); Hematocrit 29.6 % (41.0-53.0); Hemoglobin 10.2 g/dL (13.5-17.5); Lymphocytes # (auto) 3.3 10 ^3/uL (0.4-5.4); Lymphocytes % (auto) 43.3 % (10.0-50.0); Mean Corpuscular Hemoglobin 31.6 pg (28.0-32.0); Mean Corpuscular Hgb Conc. 34.5 g/dL (32.0-36.0); Mean Corpuscular Volume 91.6 fL (80.0-100.0); Monocytes # (auto) 0.6 10 ^3/uL (0-1.3); Monocytes % (auto) 8.3 % (0.0-12.0); Neutrophils # (auto) 3.4 10 ^3/uL (1.6-8.6); Neutrophils % (auto) 45.1 % (37.0-80.0); Nucleated Red Blood Cells % 0.1 %; Platelet Count (auto) 174 10^3/uL (140-450); Red Blood Cells 3.24 10^6/uL (4.5-5.90); Red Cell Distribution Width 14.1 % (11.8-14.3); White Blood Cell 7.6 10^3/uL (4.4-10.8)
[2020-08-06 17:51] LABS: Acetaminophen < 2.0 ug/mL (10-30); Albumin 3.5 g/dL (3.4-5.0); BUN/Creatinine Ratio 4.1; Magnesium 2.3 mg/dL (1.6-2.6); Potassium 3.9 mmol/L (3.5-5.1); Salicylate < 1.7 mg/dL (2.8-20.0)
[2020-08-06 17:54] LABS: Bilirubin, Total 0.5 mg/dL (0.2-1.0); Total Protein 6.8 g/dL (6.4-8.2)
[2020-08-06] MEDS ORDERED: LORazepam 2MG/ML-1ML VIAL ONE (18:49)
[2020-08-06] MEDS ORDERED: LORazepam 2MG/ML-1ML VIAL IV ONE (19:00)
[2020-08-06] MEDS ORDERED: FOLIC ACID 1 MG, MULTIPLE VITAMIN 10 ML, MAGNESIUM SULF SDV 50% 8 MEQ, THIAMINE INJ 100... INJ STA ×5 (19:31)
[2020-08-07 01:47] LABS: Urine Amorphous Crystal FEW /hpf (None Seen); Urine Bacteria FEW /hpf (None Seen); Urine Blood TRACE /uL (Negative); Urine Hyaline Cast FEW /lpf (0 - 2); Urine Specific Gravity 1.008 (1.001-1.035); Urine WBC 33 /hpf (0 - 3)
[2020-08-07 01:53] LABS: Amphetamine Screen, Urine NEGATIVE (NEGATIVE); Benzodiazephine Screen, Urine NEGATIVE (NEGATIVE); Cannabinoid Screen, Urine NEGATIVE (NEGATIVE); Cocaine Screen, Urine NEGATIVE (NEGATIVE)
[2020-08-07 02:03] LABS: Phencyclidine Screen, Urine NEGATIVE (NEGATIVE)
[2020-08-07 02:53] LABS: Barbiturate Scree,Urine NEGATIVE (NEGATIVE); Opiate Scree,Urine NEGATIVE (NEGATIVE)
[2020-08-07 11:25] VITALS: BP 144/94
== END 2020-08-07 11:54 | disposition home or self-care (01) ==
LOC: EDBD 16:41 → ER 16:44
DX: F10.129 Alcohol abuse with intoxication, unspecified (principal); D64.9 Anemia, unspecified; E11.22 Type 2 diabetes mellitus with diabetic chronic kidney disease; I13.2 Hypertensive heart and chronic kidney disease with heart failure and with stage 5 chronic kidney disease, or end stage renal disease; I50.9 Heart failure, unspecified; N18.6 End stage renal disease; R51.9 Headache, unspecified; Y90.8 Blood alcohol level of 240 mg/100 ml or more
CPT/HCPCS: 36415; 70450; 80053; 80307; 80320; 80329; 81001; 83735; 85025; 96361; 96365; 96366; 96375; 99285; J2060; J3411; J3475; J7030

== ENCOUNTER 2021-12-03 10:37 | Emergency (ER) | payer OTHER ==
[~2021-12-03] VITALS: Ht 170.2 cm; Wt 81.0 kg
[~2021-12-03 10:37] MED LIST changes: +AMIT25TA12 PO; -AMIT25TA9 PO; +CALC667C PO; +FOLI1TAB6 PO; +THIA100T10 PO
[2021-12-03 11:00] VITALS: BP 175/97
[2021-12-03 11:53] LABS: Basophils # (auto) 0 10 ^3/uL (0-0.2); Basophils % (auto) 0.6 % (0.0-2.0); Eosinophils # (auto) 0.1 10 ^3/uL (0-0.8); Eosinophils % (auto) 1.2 % (0.0-7.0); Hemoglobin 11.8 g/dL (13.5-17.5); Lymphocytes # (auto) 0.9 10 ^3/uL (0.4-5.4); Lymphocytes % (auto) 15.9 % (10.0-50.0); Mean Corpuscular Hemoglobin 31.4 pg (28.0-32.0); Mean Corpuscular Hgb Conc. 32.7 g/dL (32.0-36.0); Mean Corpuscular Volume 96.3 fL (80.0-100.0); Monocytes # (auto) 0.4 10 ^3/uL (0-1.3); Monocytes % (auto) 7.2 % (0.0-12.0); Neutrophils # (auto) 4.1 10 ^3/uL (1.6-8.6); Neutrophils % (auto) 75.1 % (37.0-80.0); Nucleated Red Blood Cells % 0.1 %; Red Blood Cells 3.74 10^6/uL (4.5-5.90); Red Cell Distribution Width 15.9 % (11.8-14.3); White Blood Cell 5.5 10^3/uL (4.4-10.8)
[2021-12-03 12:23] LABS: Albumin 3.4 g/dL (3.4-5.0); BUN/Creatinine Ratio 2.5; Calcium 6.4 mg/dL (8.5-10.1); Potassium 3.6 mmol/L (3.5-5.1)
[2021-12-03 12:26] LABS: Bilirubin, Total 0.9 mg/dL (0.2-1.0); Total Protein 6.1 g/dL (6.4-8.2)
[2021-12-03] MEDS ORDERED: ENOXAPARIN SOD 100 MG/1 ML SYRINGE SC ONE (14:00)
== END 2021-12-03 16:47 | disposition left against medical advice (07) ==
LOC: ER 10:37
DX: I82.621 Acute embolism and thrombosis of deep veins of right upper extremity (principal); I13.2 Hypertensive heart and chronic kidney disease with heart failure and with stage 5 chronic kidney disease, or end stage renal disease; E11.22 Type 2 diabetes mellitus with diabetic chronic kidney disease; N18.6 End stage renal disease; I50.9 Heart failure, unspecified; J44.9 Chronic obstructive pulmonary disease, unspecified; M10.9 Gout, unspecified; Z99.2 Dependence on renal dialysis; Z90.89 Acquired absence of other organs; Z79.899 Other long term (current) drug therapy; Z79.4 Long term (current) use of insulin; Z79.1 Long term (current) use of non-steroidal anti-inflammatories (NSAID)
CPT/HCPCS: 36415; 71046; 80053; 83880; 85025; 93971

== ENCOUNTER 2022-01-21 21:03 | Inpatient (IN) | payer MEDICARE, OTHER ==
[~2022-01-21] VITALS: Ht 177.8 cm; Wt 96.0 kg
[2022-01-21] MEDS ORDERED: FUROSEMIDE 40 MG/4 ML VIAL IV ONE (21:15)
[2022-01-21] MEDS ORDERED: ASPirin 81 mg TAB PO ONE (21:15)
[2022-01-21 22:26] LABS: Basophils # (auto) 0 10 ^3/uL (0-0.2); Basophils % (auto) 0.1 % (0.0-2.0); Eosinophils # (auto) 0 10 ^3/uL (0-0.8); Hematocrit 30.6 % (41.0-53.0); Lymphocytes # (auto) 0.4 10 ^3/uL (0.4-5.4); Lymphocytes % (auto) 4.9 % (10.0-50.0); Mean Corpuscular Hemoglobin 31.5 pg (28.0-32.0); Mean Corpuscular Hgb Conc. 32.7 g/dL (32.0-36.0); Mean Corpuscular Volume 96.4 fL (80.0-100.0); Monocytes # (auto) 0.5 10 ^3/uL (0-1.3); Monocytes % (auto) 5.4 % (0.0-12.0); Neutrophils # (auto) 7.5 10 ^3/uL (1.6-8.6); Neutrophils % (auto) 89.6 % (37.0-80.0); Nucleated Red Blood Cells % 0.1 %; Red Blood Cells 3.18 10^6/uL (4.5-5.90); Red Cell Distribution Width 14.2 % (11.8-14.3); White Blood Cell 8.4 10^3/uL (4.4-10.8)
[2022-01-21 22:44] LABS: Albumin 3.1 g/dL (3.4-5.0); Calcium 7.4 mg/dL (8.5-10.1); Potassium 3.6 mmol/L (3.5-5.1)
[2022-01-21 22:47] LABS: BUN/Creatinine Ratio 4.5; Bilirubin, Total 0.8 mg/dL (0.2-1.0); INR 1.06 (0.9-1.15); Total Protein 6.1 g/dL (6.4-8.2)
[2022-01-22] VITALS (15 sets, daily range): BP systolic 104–161; BP diastolic 52–126
[2022-01-22] MEDS ORDERED: NITROGLYCERIN 0.4 MG SL TAB SL PRN (03:30)
[2022-01-22] MEDS ORDERED: LORazepam 2MG/ML-1ML VIAL IV ONE (03:30)
[2022-01-22] MEDS ORDERED: MORPHINE SULFATE INJ 2 MG/ml SYRG IV PRN (03:30)
[2022-01-22] MEDS ORDERED: DEXTROSE (50%) 50ML SYRG IV PRN (03:30)
[2022-01-22] MEDS ORDERED: ONDANSETRON HCL 4 MG/2 ML VIAL IV PRN (03:30)
[2022-01-22] MEDS ORDERED: ACETAMINOPHEN 325 MG TAB PO PRN (03:30)
[2022-01-22 03:44] LABS: Alcohol, Urine < 3.0 mg/dL (0-10); Amphetamine Screen, Urine NEGATIVE (NEGATIVE); Barbiturate Scree,Urine NEGATIVE (NEGATIVE); Benzodiazephine Screen, Urine NEGATIVE (NEGATIVE); Cannabinoid Screen, Urine NEGATIVE (NEGATIVE); Cocaine Screen, Urine NEGATIVE (NEGATIVE); Opiate Scree,Urine NEGATIVE (NEGATIVE); Phencyclidine Screen, Urine NEGATIVE (NEGATIVE)
[2022-01-22] MEDS: InsuLIN REG 1unit/0.01ml Soln (100units/ml) SC SCH ×3 (06:00→18:00)
[2022-01-22] MEDS: ACCU-CHEK COMFORT CURVE STRIP VI SCH ×3 (06:08→18:48)
[2022-01-22] MEDS: GABAPENTIN 100 MG CAP PO SCH ×3 (06:11→21:17)
[2022-01-22] MEDS: amLODIPine BESYLATE 5 MG TAB PO SCH (10:00)
[2022-01-22] MEDS ORDERED: SODIUM CHL 0.9% 1000 ML BAG XX ONE (11:15)
[2022-01-22] MEDS: ASPirin 81 mg TAB PO SCH (12:37)
[2022-01-22] MEDS: PANTOPRAZOLE 40 MG TAB PO SCH (12:38)
[2022-01-22] MEDS: ALBUMIN 25% 100 ML IV PRN ×3 (12:43→13:41)
[2022-01-22] MEDS ORDERED: EPOETIN ALFA-EPBX 10,000 UNIT/1ML VIAL SC ONE (21:00)
[2022-01-22] MEDS: ATORVASTATIN 20 MG TAB PO SCH (21:16)
[2022-01-22] MEDS: TEMAZEPAM 15 MG CAP PO PRN (21:17)
[2022-01-23] VITALS (10 sets, daily range): BP systolic 92–157; BP diastolic 43–129
[2022-01-23] MEDS: ACCU-CHEK COMFORT CURVE STRIP VI SCH ×4 (00:22→18:16)
[2022-01-23] MEDS: ALBUTEROL SULF 2.5 MG/0.5ML(0.5%) NEB SOLN NEB PRN ×2 (03:07→16:21)
[2022-01-23 06:10] LABS: Albumin 3.1 g/dL (3.4-5.0); Potassium 3.4 mmol/L (3.5-5.1)
[2022-01-23 06:13] LABS: BUN/Creatinine Ratio 4.6; Bilirubin, Total 0.6 mg/dL (0.2-1.0); Total Protein 5.4 g/dL (6.4-8.2)
[2022-01-23] MEDS: GABAPENTIN 100 MG CAP PO SCH ×3 (06:27→21:46)
[2022-01-23] MEDS: InsuLIN REG 1unit/0.01ml Soln (100units/ml) SC SCH ×4 (06:28→18:17)
[2022-01-23 06:41] LABS: Basophils # (auto) 0 10 ^3/uL (0-0.2); Basophils % (auto) 0.3 % (0.0-2.0); Eosinophils # (auto) 0.1 10 ^3/uL (0-0.8); Eosinophils % (auto) 0.9 % (0.0-7.0); Hematocrit 25.9 % (41.0-53.0); Hemoglobin 8.9 g/dL (13.5-17.5); Lymphocytes # (auto) 0.9 10 ^3/uL (0.4-5.4); Lymphocytes % (auto) 14.5 % (10.0-50.0); Mean Corpuscular Hemoglobin 32.7 pg (28.0-32.0); Mean Corpuscular Hgb Conc. 34.4 g/dL (32.0-36.0); Mean Corpuscular Volume 94.9 fL (80.0-100.0); Monocytes # (auto) 0.8 10 ^3/uL (0-1.3); Monocytes % (auto) 12.4 % (0.0-12.0); Neutrophils # (auto) 4.7 10 ^3/uL (1.6-8.6); Neutrophils % (auto) 71.9 % (37.0-80.0); Nucleated Red Blood Cells % 0.1 %; Red Blood Cells 2.73 10^6/uL (4.5-5.90); Red Cell Distribution Width 13.9 % (11.8-14.3); White Blood Cell 6.5 10^3/uL (4.4-10.8)
[2022-01-23] MEDS: ASPirin 81 mg TAB PO SCH (09:33)
[2022-01-23] MEDS: amLODIPine BESYLATE 5 MG TAB PO SCH (09:33)
[2022-01-23] MEDS: PANTOPRAZOLE 40 MG TAB PO SCH (09:33)
[2022-01-23] MEDS ORDERED: METO25TA5 PO (13:31)
[2022-01-23] MEDS ORDERED: ATOR20TA50 PO (13:31)
[2022-01-23] MEDS ORDERED: AMLO-489 PO (13:34)
[2022-01-23] MEDS ORDERED: MULTIPLE VITAMINS W/ MINERALS TAB PO ONE (14:15)
[2022-01-23] MEDS ORDERED: methylPREDNISolone SOD SUCC 125 MG/2 ML VL IV ONE (14:15)
[2022-01-23] MEDS ORDERED: FOLIC ACID 1 MG TAB PO ONE (14:15)
[2022-01-23] MEDS ORDERED: THIAMINE HCL 100 MG TAB PO ONE (14:15)
[2022-01-23] MEDS ORDERED: AZITHROMYCIN 500MG/ 250ML 250 ML IV ONE (14:15)
[2022-01-23] MEDS: TEMAZEPAM 15 MG CAP PO PRN (21:45)
[2022-01-23] MEDS: methylPREDNISolone SOD SUCC 125 MG/2 ML VL IV SCH (21:45)
[2022-01-23] MEDS: ATORVASTATIN 20 MG TAB PO SCH (21:46)
[2022-01-24] VITALS (16 sets, daily range): BP systolic 93–141; BP diastolic 34–70
[2022-01-24] MEDS: ACCU-CHEK COMFORT CURVE STRIP VI SCH ×4 (00:28→17:22)
[2022-01-24] MEDS: InsuLIN REG 1unit/0.01ml Soln (100units/ml) SC SCH ×4 (00:28→17:36)
[2022-01-24] MEDS: ALBUTEROL SULF 2.5 MG/0.5ML(0.5%) NEB SOLN NEB PRN ×4 (04:49→23:47)
[2022-01-24 05:12] LABS: Basophils # (auto) 0 10 ^3/uL (0-0.2); Basophils % (auto) 0.1 % (0.0-2.0); Eosinophils # (auto) 0 10 ^3/uL (0-0.8); Eosinophils % (auto) 0.1 % (0.0-7.0); Hematocrit 27.5 % (41.0-53.0); Hemoglobin 9.3 g/dL (13.5-17.5); Lymphocytes # (auto) 0.3 10 ^3/uL (0.4-5.4); Lymphocytes % (auto) 8.2 % (10.0-50.0); Mean Corpuscular Hemoglobin 32.8 pg (28.0-32.0); Mean Corpuscular Hgb Conc. 33.8 g/dL (32.0-36.0); Monocytes # (auto) 0 10 ^3/uL (0-1.3); Monocytes % (auto) 1.2 % (0.0-12.0); Neutrophils # (auto) 3.4 10 ^3/uL (1.6-8.6); Neutrophils % (auto) 90.4 % (37.0-80.0); Nucleated Red Blood Cells % 0.1 %; Red Blood Cells 2.84 10^6/uL (4.5-5.90); Red Cell Distribution Width 14.3 % (11.8-14.3); White Blood Cell 3.7 10^3/uL (4.4-10.8)
[2022-01-24 05:28] LABS: Potassium 4.2 mmol/L (3.5-5.1)
[2022-01-24 05:31] LABS: BUN/Creatinine Ratio 6.1; Calcium 7.1 mg/dL (8.5-10.1); Magnesium 2.2 mg/dL (1.6-2.6)
[2022-01-24] MEDS: GABAPENTIN 100 MG CAP PO SCH ×3 (06:19→22:13)
[2022-01-24] MEDS ORDERED: SODIUM CHL 0.9% 1000 ML BAG XX ONE (07:00)
[2022-01-24] MEDS: amLODIPine BESYLATE 5 MG TAB PO SCH (10:00)
[2022-01-24] MEDS: PANTOPRAZOLE 40 MG TAB PO SCH (11:03)
[2022-01-24] MEDS: FOLIC ACID 1 MG TAB PO SCH (11:03)
[2022-01-24] MEDS: AZITHROMYCIN 500MG/ 250ML 250 ML IV SCH (11:03)
[2022-01-24] MEDS: methylPREDNISolone SOD SUCC 125 MG/2 ML VL IV SCH ×2 (11:03→22:13)
[2022-01-24] MEDS: MULTIPLE VITAMINS W/ MINERALS TAB PO SCH (11:03)
[2022-01-24] MEDS: THIAMINE HCL 100 MG TAB PO SCH (11:04)
[2022-01-24] MEDS: ASPirin 81 mg TAB PO SCH (11:04)
[2022-01-24] MEDS ORDERED: EPOETIN ALFA-EPBX 10,000 UNIT/1ML VIAL SC ONE (21:00)
[2022-01-24] MEDS: ATORVASTATIN 20 MG TAB PO SCH (22:13)
[2022-01-25] VITALS: BP 127/52
[2022-01-25] MEDS: InsuLIN REG 1unit/0.01ml Soln (100units/ml) SC SCH ×4 (00:27→18:26)
[2022-01-25] MEDS: ACCU-CHEK COMFORT CURVE STRIP VI SCH ×4 (00:28→18:25)
[2022-01-25] MEDS: ALBUTEROL SULF 2.5 MG/0.5ML(0.5%) NEB SOLN NEB SCH ×5 (04:51→22:10)
[2022-01-25] MEDS: GABAPENTIN 100 MG CAP PO SCH ×3 (05:23→21:04)
[2022-01-25 06:49] LABS: Basophils # (auto) 0 10 ^3/uL (0-0.2); Basophils % (auto) 0.1 % (0.0-2.0); Eosinophils # (auto) 0 10 ^3/uL (0-0.8); Eosinophils % (auto) 0.1 % (0.0-7.0); Hematocrit 25.9 % (41.0-53.0); Hemoglobin 8.8 g/dL (13.5-17.5); Lymphocytes # (auto) 0.3 10 ^3/uL (0.4-5.4); Lymphocytes % (auto) 4.3 % (10.0-50.0); Mean Corpuscular Hemoglobin 32.9 pg (28.0-32.0); Mean Corpuscular Hgb Conc. 33.9 g/dL (32.0-36.0); Mean Corpuscular Volume 96.9 fL (80.0-100.0); Monocytes # (auto) 0.2 10 ^3/uL (0-1.3); Monocytes % (auto) 2.6 % (0.0-12.0); Neutrophils # (auto) 5.8 10 ^3/uL (1.6-8.6); Neutrophils % (auto) 92.9 % (37.0-80.0); Nucleated Red Blood Cells % 0.1 %; Red Blood Cells 2.67 10^6/uL (4.5-5.90); Red Cell Distribution Width 14.4 % (11.8-14.3); White Blood Cell 6.2 10^3/uL (4.4-10.8)
[2022-01-25 06:54] LABS: BUN/Creatinine Ratio 6.9; Calcium 7.1 mg/dL (8.5-10.1); Potassium 3.6 mmol/L (3.5-5.1)
[2022-01-25 08:00] VITALS: BP 101/59
[2022-01-25] MEDS: amLODIPine BESYLATE 5 MG TAB PO SCH (10:00)
[2022-01-25] MEDS: BUDESONIDE (INHALATION) 0.5 MG/2 ML NEB NEB SCH ×2 (10:00→18:25)
[2022-01-25] MEDS: IPRATROPIUM BROM 0.5 MG/2.5ML INH SOL NEB SCH ×4 (10:00→22:10)
[2022-01-25] MEDS: THIAMINE HCL 100 MG TAB PO SCH (10:24)
[2022-01-25] MEDS: methylPREDNISolone SOD SUCC 125 MG/2 ML VL IV SCH ×2 (10:24→21:04)
[2022-01-25] MEDS: AZITHROMYCIN 500MG/ 250ML 250 ML IV SCH (10:24)
[2022-01-25] MEDS: FOLIC ACID 1 MG TAB PO SCH (10:25)
[2022-01-25] MEDS: ASPirin 81 mg TAB PO SCH (10:25)
[2022-01-25] MEDS: PANTOPRAZOLE 40 MG TAB PO SCH (10:25)
[2022-01-25] MEDS: MULTIPLE VITAMINS W/ MINERALS TAB PO SCH (10:25)
[2022-01-25] MEDS ORDERED: ALPRAZolam 0.25 MG TAB PO PRN (11:45)
[2022-01-25 19:00] VITALS: BP 127/74
[2022-01-25 20:00] VITALS: BP 127/74
[2022-01-25] MEDS: TEMAZEPAM 15 MG CAP PO PRN (21:03)
[2022-01-25] MEDS: ATORVASTATIN 20 MG TAB PO SCH (21:04)
[2022-01-25 23:00] VITALS: BP 117/55
[2022-01-26] MEDS: InsuLIN REG 1unit/0.01ml Soln (100units/ml) SC SCH ×4 (01:51→17:58)
[2022-01-26] MEDS: ALBUTEROL SULF 2.5 MG/0.5ML(0.5%) NEB SOLN NEB SCH ×6 (02:13→21:57)
[2022-01-26] MEDS: IPRATROPIUM BROM 0.5 MG/2.5ML INH SOL NEB SCH ×6 (02:13→21:57)
[2022-01-26 03:00] VITALS: BP 129/56
[2022-01-26 05:20] LABS: Calcium 6.8 mg/dL (8.5-10.1); Potassium 3.8 mmol/L (3.5-5.1)
[2022-01-26 05:21] LABS: BUN/Creatinine Ratio 8.9
[2022-01-26] MEDS: BUDESONIDE (INHALATION) 0.5 MG/2 ML NEB NEB SCH ×2 (06:00→18:43)
[2022-01-26] MEDS: GABAPENTIN 100 MG CAP PO SCH ×3 (06:13→20:59)
[2022-01-26] MEDS: ACCU-CHEK COMFORT CURVE STRIP VI SCH ×4 (06:13→17:45)
[2022-01-26] MEDS ORDERED: SODIUM CHL 0.9% 1000 ML BAG XX ONE (07:00)
[2022-01-26 07:58] VITALS: BP 127/60
[2022-01-26] MEDS: amLODIPine BESYLATE 5 MG TAB PO SCH ×2 (08:45→10:00)
[2022-01-26 12:00] VITALS: BP 111/52
[2022-01-26] MEDS: methylPREDNISolone SOD SUCC 125 MG/2 ML VL IV SCH ×2 (12:19→20:58)
[2022-01-26] MEDS: PANTOPRAZOLE 40 MG TAB PO SCH (12:20)
[2022-01-26] MEDS: MULTIPLE VITAMINS W/ MINERALS TAB PO SCH (12:20)
[2022-01-26] MEDS: FOLIC ACID 1 MG TAB PO SCH (12:20)
[2022-01-26] MEDS: AZITHROMYCIN 500MG/ 250ML 250 ML IV SCH (12:20)
[2022-01-26] MEDS: ASPirin 81 mg TAB PO SCH (12:20)
[2022-01-26] MEDS: THIAMINE HCL 100 MG TAB PO SCH (12:20)
[2022-01-26 16:00] VITALS: BP 130/63
[2022-01-26 20:00] VITALS: BP 131/54
[2022-01-26] MEDS: ATORVASTATIN 20 MG TAB PO SCH (20:59)
[2022-01-26] MEDS: TEMAZEPAM 15 MG CAP PO PRN (20:59)
[2022-01-26] MEDS ORDERED: EPOETIN ALFA-EPBX 10,000 UNIT/1ML VIAL SC ONE (21:00)
[2022-01-27] VITALS (7 sets, daily range): BP systolic 109–153; BP diastolic 54–70
[2022-01-27] MEDS: ACCU-CHEK COMFORT CURVE STRIP VI SCH ×4 (00:50→17:43)
[2022-01-27] MEDS: InsuLIN REG 1unit/0.01ml Soln (100units/ml) SC SCH ×4 (00:50→18:02)
[2022-01-27] MEDS: IPRATROPIUM BROM 0.5 MG/2.5ML INH SOL NEB SCH ×6 (02:00→21:47)
[2022-01-27] MEDS: ALBUTEROL SULF 2.5 MG/0.5ML(0.5%) NEB SOLN NEB SCH ×6 (02:00→21:47)
[2022-01-27] MEDS: GABAPENTIN 100 MG CAP PO SCH ×3 (06:30→21:27)
[2022-01-27] MEDS: methylPREDNISolone SOD SUCC 125 MG/2 ML VL IV SCH ×2 (10:09→21:26)
[2022-01-27] MEDS: AZITHROMYCIN 500MG/ 250ML 250 ML IV SCH (10:10)
[2022-01-27] MEDS: FOLIC ACID 1 MG TAB PO SCH (10:10)
[2022-01-27] MEDS: ASPirin 81 mg TAB PO SCH (10:10)
[2022-01-27] MEDS: THIAMINE HCL 100 MG TAB PO SCH (10:11)
[2022-01-27] MEDS: MULTIPLE VITAMINS W/ MINERALS TAB PO SCH (10:11)
[2022-01-27] MEDS: amLODIPine BESYLATE 5 MG TAB PO SCH (10:11)
[2022-01-27] MEDS: PANTOPRAZOLE 40 MG TAB PO SCH (10:11)
[2022-01-27] MEDS: BUDESONIDE (INHALATION) 0.5 MG/2 ML NEB NEB SCH ×2 (10:39→19:05)
[2022-01-27] MEDS: ATORVASTATIN 20 MG TAB PO SCH (21:26)
[2022-01-27] MEDS: TEMAZEPAM 15 MG CAP PO PRN (21:27)
[2022-01-28] MEDS: InsuLIN REG 1unit/0.01ml Soln (100units/ml) SC SCH ×3 (01:14→11:36)
[2022-01-28] MEDS: ACCU-CHEK COMFORT CURVE STRIP VI SCH ×3 (01:17→11:33)
[2022-01-28] MEDS: ALBUTEROL SULF 2.5 MG/0.5ML(0.5%) NEB SOLN NEB SCH ×4 (02:00→14:02)
[2022-01-28] MEDS: IPRATROPIUM BROM 0.5 MG/2.5ML INH SOL NEB SCH ×4 (02:00→14:02)
[2022-01-28 05:24] VITALS: BP 155/72
[2022-01-28] MEDS: GABAPENTIN 100 MG CAP PO SCH (05:34)
[2022-01-28] MEDS: BUDESONIDE (INHALATION) 0.5 MG/2 ML NEB NEB SCH (05:54)
[2022-01-28 06:39] LABS: Hematocrit 27.3 % (41.0-53.0); Hemoglobin 9.3 g/dL (13.5-17.5); Mean Corpuscular Hgb Conc. 34.2 g/dL (32.0-36.0); Mean Corpuscular Volume 96.6 fL (80.0-100.0); Red Blood Cells 2.83 10^6/uL (4.5-5.90); Red Cell Distribution Width 14.7 % (11.8-14.3); White Blood Cell 9.1 10^3/uL (4.4-10.8)
[2022-01-28 06:42] LABS: Band Neutrophils % (manual) 0; Basophils % (manual) 0 (0.0-2.0); Blast Cells 0; Eosinophils % (manual) 0 (0-7); Metamyelocytes % 0; Myelocytes % 0; Promyelocytes % 0; Reactive Lymphocytes 0
[2022-01-28 06:54] LABS: BUN/Creatinine Ratio 10.8; Calcium 7.3 mg/dL (8.5-10.1); Magnesium 2.5 mg/dL (1.6-2.6); Potassium 4.7 mmol/L (3.5-5.1)
[2022-01-28 08:31] LABS: Lymphocytes % (manual) 5 (10.0-50.0); Monocytes % (manual) 4 (0-12)
[2022-01-28 09:00] VITALS: BP 152/68
[2022-01-28] MEDS: methylPREDNISolone SOD SUCC 125 MG/2 ML VL IV SCH (09:02)
[2022-01-28] MEDS: ASPirin 81 mg TAB PO SCH (09:03)
[2022-01-28] MEDS: FOLIC ACID 1 MG TAB PO SCH (09:03)
[2022-01-28] MEDS: THIAMINE HCL 100 MG TAB PO SCH (09:03)
[2022-01-28] MEDS: MULTIPLE VITAMINS W/ MINERALS TAB PO SCH (09:03)
[2022-01-28] MEDS: PANTOPRAZOLE 40 MG TAB PO SCH (09:03)
[2022-01-28] MEDS: AZITHROMYCIN 500MG/ 250ML 250 ML IV SCH (09:03)
[2022-01-28] MEDS: amLODIPine BESYLATE 5 MG TAB PO SCH (09:04)
[2022-01-28] MEDS ORDERED: ASPI-325 PO (12:22)
[2022-01-28] MEDS ORDERED: METH4PAK PO (12:22)
[2022-01-28 13:00] VITALS: BP 137/83
[2022-01-28 13:15] VITALS: BP 152/68
== END 2022-01-28 14:55 | disposition home health service (06) | DRG 280 ==
LOC: EDBD 21:03 → ER 21:05 → TELE 01-22 03:27 → DOU IN ICU 01-22 10:15 → TELE-CENTR 01-27 15:30
PROVIDERS: ADMIT Nurse Practitioner; ATTEND Internal Medicine Geriatric Medicine
PROC: 5A09357 Assistance with Respiratory Ventilation, Less than 24 Consecutive Hours, Continuous Positive Airway Pressure (ICD-10-PCS; 2022-01-21)
PROC: 5A1D70Z Performance of Urinary Filtration, Intermittent, Less than 6 Hours Per Day (ICD-10-PCS; principal; 2022-01-22)
PROC: 05HC33Z Insertion of Infusion Device into Left Basilic Vein, Percutaneous Approach (ICD-10-PCS; 2022-01-22)
PROC: B54NZZA Ultrasonography of Left Upper Extremity Veins, Guidance (ICD-10-PCS; 2022-01-22)
PROC: 5A1D70Z Performance of Urinary Filtration, Intermittent, Less than 6 Hours Per Day (ICD-10-PCS; 2022-01-24)
PROC: 5A1D70Z Performance of Urinary Filtration, Intermittent, Less than 6 Hours Per Day (ICD-10-PCS; 2022-01-26)
DX: I21.4 Non-ST elevation (NSTEMI) myocardial infarction (principal); I50.43 Acute on chronic combined systolic (congestive) and diastolic (congestive) heart failure; J96.01 Acute respiratory failure with hypoxia; N18.6 End stage renal disease; I13.2 Hypertensive heart and chronic kidney disease with heart failure and with stage 5 chronic kidney disease, or end stage renal disease; J44.1 Chronic obstructive pulmonary disease with (acute) exacerbation; J98.11 Atelectasis; J91.8 Pleural effusion in other conditions classified elsewhere; Z20.822 Contact with and (suspected) exposure to COVID-19; E11.22 Type 2 diabetes mellitus with diabetic chronic kidney disease; I48.91 Unspecified atrial fibrillation; D63.1 Anemia in chronic kidney disease; D69.6 Thrombocytopenia, unspecified; E66.9 Obesity, unspecified; E83.42 Hypomagnesemia; E87.6 Hypokalemia; F10.20 Alcohol dependence, uncomplicated; F41.9 Anxiety disorder, unspecified; Z82.3 Family history of stroke; Z83.3 Family history of diabetes mellitus; Z99.2 Dependence on renal dialysis; I25.2 Old myocardial infarction; Z68.30 Body mass index [BMI] 30.0-30.9, adult; Z82.5 Family history of asthma and other chronic lower respiratory diseases
CPT/HCPCS: 36415; 36600; 71045; 71275; 80048; 80053; 80307; 82805; 82962; 83605; 83735; 83880; 84484; 85007; 85025; 85027; 85610; 87081; 87804; 90935; 93005; 93306; 94640; 94660; 96374; 96375; 99291; G0378; J1642; J1815; P9047

== ENCOUNTER 2022-02-27 13:27 | Inpatient (IN) | payer OTHER ==
[~2022-02-27] VITALS: Ht 167.6 cm; Wt 92.5 kg
[2022-02-27] MEDS: ATORVASTATIN 20 MG TAB PO SCH
[~2022-02-27 13:27] MED LIST changes: -ALB5IS NEB; -ALLO100T; -AMIT25TA12 PO; +ASPI-325 PO; -ASPI81CH43 PO; -ATOR10TA52 PO; +ATOR20TA50 PO; +AZITTAB PO; -BUDE0.5S IN; -DOC100C PO; -DOX100T PO; -ERGO2000 PO; -FERR-20 PO; -FLUO20CA19 PO; -FLUO40CA PO; -FOLI1TAB6 PO; -GAB100C PO; -IBUP600T27 PO; -INSLANTI SC; -INSR100KIT SC; -IPRA0.03; +METH4PAK PO; -METO-158 PO; +METO25TA5 PO; -PANT40TA2 PO; -SIMV-8 PO; -THIA100T10 PO; -TIOT17SP IN; -TRAZ50TA2 PO
[2022-02-27] MEDS ORDERED: HYDR1TAB97 PO (15:30)
[2022-02-27 15:46] LABS: Basophils # (auto) 0 10 ^3/uL (0-0.2); Basophils % (auto) 0.3 % (0.0-2.0); Eosinophils # (auto) 0.1 10 ^3/uL (0-0.8); Eosinophils % (auto) 0.7 % (0.0-7.0); Hematocrit 31.9 % (41.0-53.0); Hemoglobin 10.6 g/dL (13.5-17.5); Lymphocytes # (auto) 1.7 10 ^3/uL (0.4-5.4); Mean Corpuscular Hemoglobin 31.7 pg (28.0-32.0); Mean Corpuscular Hgb Conc. 33.2 g/dL (32.0-36.0); Mean Corpuscular Volume 95.5 fL (80.0-100.0); Monocytes # (auto) 0.9 10 ^3/uL (0-1.3); Monocytes % (auto) 10.3 % (0.0-12.0); Neutrophils # (auto) 6.2 10 ^3/uL (1.6-8.6); Neutrophils % (auto) 69.7 % (37.0-80.0); Nucleated Red Blood Cells % 0.1 %; Red Blood Cells 3.34 10^6/uL (4.5-5.90); Red Cell Distribution Width 14.6 % (11.8-14.3); White Blood Cell 8.9 10^3/uL (4.4-10.8)
[2022-02-27 16:06] LABS: INR 1.12 (0.9-1.15); Partial Thromboplastin Time 29.6 sec (24.6-33.4)
[2022-02-27 16:07] LABS: Albumin 2.9 g/dL (3.4-5.0); BUN/Creatinine Ratio 4.7; Calcium 7.3 mg/dL (8.5-10.1); Potassium 4.2 mmol/L (3.5-5.1)
[2022-02-27 16:11] LABS: Bilirubin, Total 0.8 mg/dL (0.2-1.0); Magnesium 2.3 mg/dL (1.6-2.6); Total Protein 4.9 g/dL (6.4-8.2)
[2022-02-27] MEDS ORDERED: NITROGLYCERIN 0.4 MG SL TAB SL PRN (20:15)
[2022-02-27] MEDS ORDERED: MORPHINE SULFATE INJ 2 MG/ml SYRG IV PRN (20:15)
[2022-02-27] MEDS ORDERED: FUROSEMIDE 20 MG/2 ML VIAL IV ONE (21:00)
[2022-02-27] MEDS ORDERED: ONDANSETRON HCL 4 MG/2 ML VIAL IV PRN (21:00)
[2022-02-27] MEDS ORDERED: FUROSEMIDE 40 MG/4 ML VIAL IV ONE (21:15)
[2022-02-27] MEDS ORDERED: methylPREDNISolone 4 MG TAB PO SCH (21:30)
[2022-02-27] MEDS: dilTIAZem 125mg/125ml BAG KIT 125 ML IV SCH (21:50)
[2022-02-28] VITALS (30 sets, daily range): BP systolic 80–151; BP diastolic 40–82
[2022-02-28 01:03] LABS: Urine Bacteria NONE SEEN /hpf (None Seen); Urine Blood Negative /uL (Negative); Urine Specific Gravity 1.011 (1.001-1.035); Urine WBC <1 /hpf (0 - 3)
[2022-02-28 05:09] LABS: Basophils # (auto) 0 10 ^3/uL (0-0.2); Basophils % (auto) 0.4 % (0.0-2.0); Eosinophils # (auto) 0.1 10 ^3/uL (0-0.8); Eosinophils % (auto) 1.3 % (0.0-7.0); Hematocrit 31.4 % (41.0-53.0); Hemoglobin 10.4 g/dL (13.5-17.5); Lymphocytes # (auto) 1.7 10 ^3/uL (0.4-5.4); Lymphocytes % (auto) 20.3 % (10.0-50.0); Mean Corpuscular Hemoglobin 31.5 pg (28.0-32.0); Mean Corpuscular Hgb Conc. 33.3 g/dL (32.0-36.0); Mean Corpuscular Volume 94.6 fL (80.0-100.0); Monocytes # (auto) 0.9 10 ^3/uL (0-1.3); Monocytes % (auto) 10.8 % (0.0-12.0); Neutrophils # (auto) 5.6 10 ^3/uL (1.6-8.6); Neutrophils % (auto) 67.2 % (37.0-80.0); Red Blood Cells 3.32 10^6/uL (4.5-5.90); Red Cell Distribution Width 14.2 % (11.8-14.3); White Blood Cell 8.4 10^3/uL (4.4-10.8)
[2022-02-28 05:13] LABS: Albumin 2.7 g/dL (3.4-5.0); BUN/Creatinine Ratio 4.9; Calcium 7.1 mg/dL (8.5-10.1); Potassium 4.2 mmol/L (3.5-5.1)
[2022-02-28 05:16] LABS: Bilirubin, Total 0.8 mg/dL (0.2-1.0); Total Protein 4.7 g/dL (6.4-8.2)
[2022-02-28] MEDS ORDERED: SODIUM CHL 0.9% 1000 ML BAG XX ONE (07:00)
[2022-02-28] MEDS: dilTIAZem 125mg/125ml BAG KIT 125 ML IV SCH (07:05)
[2022-02-28] MEDS ORDERED: METOPROLOL TARTRATE 25 MG TAB PO SCH (10:00)
[2022-02-28] MEDS ORDERED: DEXTROSE (50%) 50ML SYRG IV PRN (11:45)
[2022-02-28] MEDS ORDERED: ALPRAZolam 0.25 MG TAB PO PRN (11:45)
[2022-02-28] MEDS ORDERED: methylPREDNISolone SOD SUCC 40 MG/ML VL IV ONE (11:45)
[2022-02-28] MEDS ORDERED: METOPROLOL TARTRATE 25 MG TAB ONE (12:23)
[2022-02-28] MEDS: ASPirin-EC 81 mg tab PO SCH (12:31)
[2022-02-28] MEDS: amLODIPine BESYLATE 5 MG TAB PO SCH (13:52)
[2022-02-28] MEDS: ACCU-CHEK COMFORT CURVE STRIP VI SCH ×2 (17:30→21:28)
[2022-02-28] MEDS: InsuLIN REG 1unit/0.01ml Soln (100units/ml) SC SCH ×2 (17:48→21:28)
[2022-02-28] MEDS: IPRATROPIUM BROM 0.5 MG/2.5ML INH SOL NEB SCH (19:12)
[2022-02-28] MEDS: TEMAZEPAM 15 MG CAP PO PRN (21:12)
[2022-02-28] MEDS: METOPROLOL TARTRATE 25 MG TAB PO SCH (21:13)
[2022-02-28] MEDS: ATORVASTATIN 20 MG TAB PO SCH (21:13)
[2022-02-28] MEDS: methylPREDNISolone SOD SUCC 40 MG/ML VL IV SCH (21:14)
[2022-02-28] MEDS: EPOETIN ALFA-EPBX 10,000 UNIT/1ML VIAL SC ONE ×2 (21:16→21:27)
[2022-03-01] VITALS (14 sets, daily range): BP systolic 99–131; BP diastolic 44–95
[2022-03-01 05:20] LABS: BUN/Creatinine Ratio 5.4; Calcium 6.4 mg/dL (8.5-10.1); Potassium 4.7 mmol/L (3.5-5.1)
[2022-03-01] MEDS: IPRATROPIUM BROM 0.5 MG/2.5ML INH SOL NEB SCH ×3 (06:01→18:56)
[2022-03-01] MEDS: ACCU-CHEK COMFORT CURVE STRIP VI SCH ×4 (06:08→21:02)
[2022-03-01] MEDS: InsuLIN REG 1unit/0.01ml Soln (100units/ml) SC SCH ×4 (06:09→21:34)
[2022-03-01 08:01] LABS: Hematocrit 26.7 % (41.0-53.0)
[2022-03-01] MEDS: methylPREDNISolone SOD SUCC 40 MG/ML VL IV SCH ×2 (10:00→21:02)
[2022-03-01] MEDS: amLODIPine BESYLATE 5 MG TAB PO SCH (10:00)
[2022-03-01] MEDS: METOPROLOL TARTRATE 25 MG TAB PO SCH ×2 (10:00→21:03)
[2022-03-01] MEDS: ASPirin-EC 81 mg tab PO SCH (10:00)
[2022-03-01] MEDS: ATORVASTATIN 20 MG TAB PO SCH (21:02)
[2022-03-01] MEDS: TEMAZEPAM 15 MG CAP PO PRN (21:05)
[2022-03-02 05:00] VITALS: BP 122/59
[2022-03-02] MEDS: ACCU-CHEK COMFORT CURVE STRIP VI SCH ×4 (05:40→21:17)
[2022-03-02] MEDS: InsuLIN REG 1unit/0.01ml Soln (100units/ml) SC SCH ×4 (05:50→21:33)
[2022-03-02] MEDS: IPRATROPIUM BROM 0.5 MG/2.5ML INH SOL NEB SCH ×3 (06:26→18:11)
[2022-03-02 06:53] LABS: Hematocrit 27.4 % (41.0-53.0); Hemoglobin 9.3 g/dL (13.5-17.5)
[2022-03-02] MEDS ORDERED: SODIUM CHL 0.9% 1000 ML BAG XX ONE (07:00)
[2022-03-02 07:05] LABS: BUN/Creatinine Ratio 6.7; Calcium 6.7 mg/dL (8.5-10.1); Potassium 4.9 mmol/L (3.5-5.1)
[2022-03-02 07:30] VITALS: BP 126/68
[2022-03-02 09:00] VITALS: BP 145/70
[2022-03-02] MEDS: ASPirin-EC 81 mg tab PO SCH (10:26)
[2022-03-02] MEDS: METOPROLOL TARTRATE 25 MG TAB PO SCH ×2 (10:27→21:19)
[2022-03-02] MEDS: methylPREDNISolone SOD SUCC 40 MG/ML VL IV SCH ×2 (10:28→21:18)
[2022-03-02] MEDS: amLODIPine BESYLATE 5 MG TAB PO SCH (10:28)
[2022-03-02 13:00] VITALS: BP 144/69
[2022-03-02 17:05] VITALS: BP 149/64
[2022-03-02] MEDS ORDERED: EPOETIN ALFA-EPBX 10,000 UNIT/1ML VIAL SC ONE (21:00)
[2022-03-02] MEDS: TEMAZEPAM 15 MG CAP PO PRN (21:17)
[2022-03-02] MEDS: ATORVASTATIN 20 MG TAB PO SCH (21:18)
[2022-03-02 22:00] VITALS: BP 135/69
[2022-03-03] VITALS (8 sets, daily range): BP systolic 116–161; BP diastolic 70–138
[2022-03-03] MEDS: ACCU-CHEK COMFORT CURVE STRIP VI SCH ×4 (05:50→22:08)
[2022-03-03] MEDS: InsuLIN REG 1unit/0.01ml Soln (100units/ml) SC SCH ×4 (06:05→22:08)
[2022-03-03] MEDS: IPRATROPIUM BROM 0.5 MG/2.5ML INH SOL NEB SCH ×2 (06:35→19:03)
[2022-03-03] MEDS: ASPirin-EC 81 mg tab PO SCH (09:21)
[2022-03-03] MEDS: methylPREDNISolone SOD SUCC 40 MG/ML VL IV SCH ×2 (09:22→21:02)
[2022-03-03] MEDS: amLODIPine BESYLATE 5 MG TAB PO SCH (09:31)
[2022-03-03] MEDS: METOPROLOL TARTRATE 25 MG TAB PO SCH ×2 (09:32→21:36)
[2022-03-03] MEDS: ATORVASTATIN 20 MG TAB PO SCH (21:02)
[2022-03-04] MEDS: IPRATROPIUM BROM 0.5 MG/2.5ML INH SOL NEB SCH ×4 (02:31→12:00)
[2022-03-04] MEDS: InsuLIN REG 1unit/0.01ml Soln (100units/ml) SC SCH ×2 (05:53→12:05)
[2022-03-04] MEDS: ACCU-CHEK COMFORT CURVE STRIP VI SCH ×2 (05:54→11:55)
[2022-03-04 05:55] VITALS: BP 174/65
[2022-03-04] MEDS ORDERED: SODIUM CHL 0.9% 1000 ML BAG XX ONE (07:00)
[2022-03-04 09:00] VITALS: BP 121/54
[2022-03-04] MEDS ORDERED: METO25TA5 PO (09:57)
[2022-03-04] MEDS ORDERED: AMLO-496 PO (09:57)
[2022-03-04] MEDS ORDERED: ALPR0.25 PO (09:57)
[2022-03-04] MEDS ORDERED: METH4PAK PO (09:57)
[2022-03-04] MEDS ORDERED: ATOR20TA PO (09:57)
[2022-03-04] MEDS ORDERED: ASPI-325 PO (09:57)
[2022-03-04] MEDS: amLODIPine BESYLATE 5 MG TAB PO SCH (10:12)
[2022-03-04] MEDS: METOPROLOL TARTRATE 25 MG TAB PO SCH (10:12)
[2022-03-04] MEDS: ASPirin-EC 81 mg tab PO SCH (10:12)
[2022-03-04 13:00] VITALS: BP 131/79
[2022-03-04] MEDS ORDERED: EPOETIN ALFA-EPBX 10,000 UNIT/1ML VIAL SC ONE (21:00)
== END 2022-03-04 14:45 | disposition home or self-care (01) | DRG 314 ==
LOC: ER 13:27 → TELE 20:09 → DOU IN ICU 23:48 → TELE-CENTR 03-01 17:09
PROVIDERS: ADMIT Nurse Practitioner Family; ATTEND Internal Medicine Geriatric Medicine
PROC: 5A1D70Z Performance of Urinary Filtration, Intermittent, Less than 6 Hours Per Day (ICD-10-PCS; principal; 2022-02-28)
PROC: 5A1D70Z Performance of Urinary Filtration, Intermittent, Less than 6 Hours Per Day (ICD-10-PCS; 2022-03-04)
DX: T82.838A Hemorrhage due to vascular prosthetic devices, implants and grafts, initial encounter (principal); J96.20 Acute and chronic respiratory failure, unspecified whether with hypoxia or hypercapnia; N18.6 End stage renal disease; I13.2 Hypertensive heart and chronic kidney disease with heart failure and with stage 5 chronic kidney disease, or end stage renal disease; E46 Unspecified protein-calorie malnutrition; E87.1 Hypo-osmolality and hyponatremia; N17.9 Acute kidney failure, unspecified; I50.30 Unspecified diastolic (congestive) heart failure; I48.91 Unspecified atrial fibrillation; F17.210 Nicotine dependence, cigarettes, uncomplicated; F41.9 Anxiety disorder, unspecified; J44.9 Chronic obstructive pulmonary disease, unspecified; D63.1 Anemia in chronic kidney disease; E66.01 Morbid (severe) obesity due to excess calories; Y84.1 Kidney dialysis as the cause of abnormal reaction of the patient, or of later complication, without mention of misadventure at the time of the procedure; E11.22 Type 2 diabetes mellitus with diabetic chronic kidney disease; E83.51 Hypocalcemia; F32.A Depression, unspecified; M10.9 Gout, unspecified; Z68.32 Body mass index [BMI] 32.0-32.9, adult; Z79.01 Long term (current) use of anticoagulants; Y92.89 Other specified places as the place of occurrence of the external cause; Z79.4 Long term (current) use of insulin; Z79.899 Other long term (current) drug therapy; Z82.3 Family history of stroke; Z82.5 Family history of asthma and other chronic lower respiratory diseases; Z83.3 Family history of diabetes mellitus; Z99.2 Dependence on renal dialysis; Z91.15 Patient's noncompliance with renal dialysis
CPT/HCPCS: 36415; 71045; 80048; 80053; 81001; 82962; 83735; 83880; 84484; 85014; 85018; 85025; 85379; 85610; 85730; 87081; 87426; 90935; 93005; 93971; 94640; 96374; G0378; J1815

== ENCOUNTER 2022-03-08 12:51 | Inpatient (IN) | payer OTHER ==
[~2022-03-08] VITALS: Ht 182.9 cm; Wt 86.6 kg
[~2022-03-08 12:51] MED LIST changes: +ALPR0.25 PO; +AMLO-496 PO; +ATOR20TA PO
[2022-03-08] MEDS ORDERED: ALBUTEROL SULF 2.5 MG/0.5ML(0.5%) NEB SOLN HHN ONE ×2 (13:00→20:15)
[2022-03-08] MEDS ORDERED: IPRATROPIUM BROM 0.5 MG/2.5ML INH SOL HHN ONE ×2 (13:00→20:15)
[2022-03-08] MEDS ORDERED: methylPREDNISolone SOD SUCC 125 MG/2 ML VL IV ONE (13:00)
[2022-03-08] MEDS ORDERED: FUROSEMIDE 40 MG/4 ML VIAL IV ONE (13:00)
[2022-03-08 14:23] LABS: Hematocrit 33.2 % (41.0-53.0); Hemoglobin 11.2 g/dL (13.5-17.5); Mean Corpuscular Hemoglobin 32.3 pg (28.0-32.0); Mean Corpuscular Hgb Conc. 33.7 g/dL (32.0-36.0); Mean Corpuscular Volume 95.8 fL (80.0-100.0); Red Blood Cells 3.46 10^6/uL (4.5-5.90); Red Cell Distribution Width 15.4 % (11.8-14.3); White Blood Cell 14.4 10^3/uL (4.4-10.8)
[2022-03-08 14:36] LABS: Calcium 7.3 mg/dL (8.5-10.1); Magnesium 2.8 mg/dL (1.6-2.6)
[2022-03-08 14:37] LABS: Lactic Acid w/Reflex 3.4 mmol/L (0.4-2.0)
[2022-03-08 14:41] LABS: BUN/Creatinine Ratio 9.6; Bilirubin, Total 1.5 mg/dL (0.2-1.0); Total Protein 5.4 g/dL (6.4-8.2)
[2022-03-08 14:43] LABS: Potassium 5.6 mmol/L (3.5-5.1)
[2022-03-08 14:50] VITALS: BP 136/72
[2022-03-08] MEDS ORDERED: LIDOCAINE 1% HCL (LOCAL ANESTH.) INJ 20ML MDV ONE (14:50)
[2022-03-08] MEDS ORDERED: LIDOCAINE 1% HCL (LOCAL ANESTH.) INJ 20ML MDV ID ONE (15:00)
[2022-03-08] MEDS ORDERED: CALCIUM GLUC 1,000mg/50ml-NS 50 ML IV ONE (15:00)
[2022-03-08] MEDS ORDERED: SODIUM BICARBONATE 8.4 % INJ 50ML VIAL IV ONE (15:00)
[2022-03-08 15:17] LABS: Band Neutrophils % (manual) 0; Basophils % (manual) 0 (0.0-2.0); Blast Cells 0; Eosinophils % (manual) 0 (0-7); Metamyelocytes % 0; Myelocytes % 0; Promyelocytes % 0; Reactive Lymphocytes 0
[2022-03-08 15:50] LABS: Lymphocytes % (manual) 2 (10.0-50.0); Monocytes % (manual) 3 (0-12)
[2022-03-08 16:11] VITALS: BP 136/72
[2022-03-08 16:16] VITALS: BP 152/79
[2022-03-08] MEDS ORDERED: cloNIDine HCL 0.1 MG TAB PO ONE (17:30)
[2022-03-08] MEDS ORDERED: HYDROcodone-ACET 5/325MG TAB PO PRN (21:45)
[2022-03-08] MEDS ORDERED: cefTRIAXone 1GM/50ML D5W 50 ML IV ONE (21:45)
[2022-03-08] MEDS ORDERED: DOCUSATE SOD 100 MG CAP PO PRN (21:45)
[2022-03-08] MEDS ORDERED: ACETAMINOPHEN 325 MG TAB PO PRN (21:45)
[2022-03-08] MEDS ORDERED: AZITHROMYCIN 500MG/ 250ML 250 ML IV ONE (21:45)
[2022-03-08] MEDS ORDERED: DEXTROSE (50%) 50ML SYRG IV PRN (21:45)
[2022-03-08] MEDS ORDERED: ONDANSETRON HCL 4 MG/2 ML VIAL IV PRN (21:45)
[2022-03-08] MEDS: SODIUM CHLORIDE 0.9% 1,000 ML IV SCH (21:45)
[2022-03-08] MEDS ORDERED: MORPHINE SULFATE INJ 2 MG/ml SYRG IV PRN (22:15)
[2022-03-08] MEDS ORDERED: NITROGLYCERIN 0.4 MG SL TAB SL PRN (22:15)
[2022-03-08] MEDS: FAMOTIDINE (10MG/ML) 2ML VL IV SCH (23:10)
[2022-03-08] MEDS: methylPREDNISolone SOD SUCC 40 MG/ML VL IV SCH (23:10)
[2022-03-08] MEDS: INSULIN LANTUS (GLARGINE) 1 /0.01ml (100units/ml) SC SCH (23:21)
[2022-03-09] VITALS (39 sets, daily range): BP systolic 123–175; BP diastolic 52–70
[2022-03-09] MEDS: InsuLIN REG 1unit/0.01ml Soln (100units/ml) SC SCH ×7 (02:16→23:55)
[2022-03-09] MEDS: ACCU-CHEK COMFORT CURVE STRIP VI SCH ×7 (04:00→23:53)
[2022-03-09 04:11] LABS: Hematocrit 26.3 % (41.0-53.0); Hemoglobin 9.1 g/dL (13.5-17.5); Mean Corpuscular Hemoglobin 32.5 pg (28.0-32.0); Mean Corpuscular Hgb Conc. 34.5 g/dL (32.0-36.0); Mean Corpuscular Volume 94.4 fL (80.0-100.0); Red Blood Cells 2.79 10^6/uL (4.5-5.90); White Blood Cell 7.1 10^3/uL (4.4-10.8)
[2022-03-09 04:31] LABS: Potassium 5.5 mmol/L (3.5-5.1)
[2022-03-09 04:35] LABS: Albumin 2.4 g/dL (3.4-5.0); Calcium 7.2 mg/dL (8.5-10.1); Magnesium 2.6 mg/dL (1.6-2.6)
[2022-03-09 04:38] LABS: Bilirubin, Total 0.9 mg/dL (0.2-1.0); Total Protein 4.9 g/dL (6.4-8.2)
[2022-03-09 04:46] LABS: Band Neutrophils % (manual) 0; Basophils % (manual) 0 (0.0-2.0); Blast Cells 0; Eosinophils % (manual) 0 (0-7); Metamyelocytes % 0; Myelocytes % 0; Promyelocytes % 0; Reactive Lymphocytes 0
[2022-03-09] MEDS: ALBUTEROL SULF 2.5 MG/0.5ML(0.5%) NEB SOLN NEB PRN ×3 (06:37→14:25)
[2022-03-09] MEDS: IPRATROPIUM BROM 0.5 MG/2.5ML INH SOL NEB PRN ×3 (06:37→14:25)
[2022-03-09] MEDS: methylPREDNISolone SOD SUCC 40 MG/ML VL IV SCH ×3 (06:44→21:59)
[2022-03-09 06:57] LABS: Lymphocytes % (manual) 2 (10.0-50.0); Monocytes % (manual) 3 (0-12)
[2022-03-09] MEDS: INSULIN LANTUS (GLARGINE) 1 /0.01ml (100units/ml) SC SCH ×2 (07:10→22:04)
[2022-03-09] MEDS: cefTRIAXone 1GM/50ML D5W 50 ML IV SCH (09:40)
[2022-03-09] MEDS: SODIUM CHLORIDE 0.9% 1,000 ML IV SCH (09:41)
[2022-03-09] MEDS: FUROSEMIDE 40 MG/4 ML VIAL IV SCH (09:44)
[2022-03-09] MEDS: CARVEDILOL 3.125 MG TAB PO SCH ×2 (09:54→22:00)
[2022-03-09] MEDS: AZITHROMYCIN 500MG/ 250ML 250 ML IV SCH (09:55)
[2022-03-09 10:39] LABS: Urine Bacteria FEW /hpf (None Seen); Urine Blood 3+ /uL (Negative); Urine Mucus FEW (None Seen); Urine Specific Gravity 1.014 (1.001-1.035); Urine WBC 27 /hpf (0 - 3)
[2022-03-09] MEDS ORDERED: ASPirin 81 mg TAB PO ONE (12:15)
[2022-03-10] VITALS (55 sets, daily range): BP systolic 128–170; BP diastolic 41–75
[2022-03-10] MEDS: InsuLIN REG 1unit/0.01ml Soln (100units/ml) SC SCH ×5 (04:00→20:00)
[2022-03-10] MEDS: ACCU-CHEK COMFORT CURVE STRIP VI SCH ×5 (04:18→16:24)
[2022-03-10 05:35] LABS: Basophils # (auto) 0 10 ^3/uL (0-0.2); Eosinophils # (auto) 0 10 ^3/uL (0-0.8); Hemoglobin 8.1 g/dL (13.5-17.5)
[2022-03-10 05:39] LABS: Hematocrit 23.7 % (41.0-53.0); Lymphocytes # (auto) 0.2 10 ^3/uL (0.4-5.4); Lymphocytes % (auto) 1.9 % (10.0-50.0); Mean Corpuscular Hemoglobin 32.5 pg (28.0-32.0); Mean Corpuscular Hgb Conc. 34.3 g/dL (32.0-36.0); Mean Corpuscular Volume 94.8 fL (80.0-100.0); Monocytes # (auto) 0.2 10 ^3/uL (0-1.3); Monocytes % (auto) 1.4 % (0.0-12.0); Neutrophils % (auto) 96.7 % (37.0-80.0); Red Cell Distribution Width 15.3 % (11.8-14.3); White Blood Cell 12.4 10^3/uL (4.4-10.8)
[2022-03-10 05:58] LABS: Albumin 2.3 g/dL (3.4-5.0); Calcium 6.8 mg/dL (8.5-10.1); Magnesium 2.8 mg/dL (1.6-2.6)
[2022-03-10] MEDS: methylPREDNISolone SOD SUCC 40 MG/ML VL IV SCH ×3 (06:00→22:03)
[2022-03-10 06:01] LABS: Potassium 5.6 mmol/L (3.5-5.1)
[2022-03-10 06:02] LABS: BUN/Creatinine Ratio 11.9; Bilirubin, Total 0.5 mg/dL (0.2-1.0); Total Protein 4.2 g/dL (6.4-8.2)
[2022-03-10] MEDS: ALBUTEROL SULF 2.5 MG/0.5ML(0.5%) NEB SOLN NEB PRN ×2 (06:52→19:13)
[2022-03-10] MEDS: IPRATROPIUM BROM 0.5 MG/2.5ML INH SOL NEB PRN ×2 (06:52→19:13)
[2022-03-10] MEDS: INSULIN LANTUS (GLARGINE) 1 /0.01ml (100units/ml) SC SCH ×2 (06:53→22:08)
[2022-03-10 07:49] LABS: INR 1.07 (0.9-1.15); Partial Thromboplastin Time 30.4 sec (24.6-33.4)
[2022-03-10] MEDS: CARVEDILOL 3.125 MG TAB PO SCH ×2 (09:40→22:03)
[2022-03-10] MEDS: cefTRIAXone 1GM/50ML D5W 50 ML IV SCH (09:41)
[2022-03-10] MEDS: FAMOTIDINE (10MG/ML) 2ML VL IV SCH (09:41)
[2022-03-10] MEDS: ASPirin 81 mg TAB PO SCH (09:41)
[2022-03-10] MEDS: FUROSEMIDE 40 MG/4 ML VIAL IV SCH (09:41)
[2022-03-10] MEDS: AZITHROMYCIN 500MG/ 250ML 250 ML IV SCH (09:42)
[2022-03-11] VITALS (35 sets, daily range): BP systolic 120–168; BP diastolic 50–92
[2022-03-11] MEDS: ACCU-CHEK COMFORT CURVE STRIP VI SCH ×6 (00:11→22:00)
[2022-03-11] MEDS: InsuLIN REG 1unit/0.01ml Soln (100units/ml) SC SCH ×6 (00:11→22:06)
[2022-03-11] MEDS: methylPREDNISolone SOD SUCC 40 MG/ML VL IV SCH ×3 (06:00→22:00)
[2022-03-11] MEDS: INSULIN LANTUS (GLARGINE) 1 /0.01ml (100units/ml) SC SCH ×2 (06:42→22:20)
[2022-03-11] MEDS: ASPirin 81 mg TAB PO SCH (08:59)
[2022-03-11] MEDS: CARVEDILOL 3.125 MG TAB PO SCH ×2 (09:04→22:06)
[2022-03-11] MEDS: FUROSEMIDE 40 MG/4 ML VIAL IV SCH (09:04)
[2022-03-11] MEDS: cefTRIAXone 1GM/50ML D5W 50 ML IV SCH (09:04)
[2022-03-11] MEDS: AZITHROMYCIN 500MG/ 250ML 250 ML IV SCH (09:05)
[2022-03-11 09:50] LABS: Hematocrit 26.1 % (41.0-53.0); Hemoglobin 9.1 g/dL (13.5-17.5); Mean Corpuscular Hemoglobin 32.6 pg (28.0-32.0); Mean Corpuscular Hgb Conc. 34.7 g/dL (32.0-36.0); Mean Corpuscular Volume 93.9 fL (80.0-100.0); Red Blood Cells 2.78 10^6/uL (4.5-5.90); Red Cell Distribution Width 14.9 % (11.8-14.3); White Blood Cell 8.5 10^3/uL (4.4-10.8)
[2022-03-11 10:11] LABS: Calcium 7.1 mg/dL (8.5-10.1); Magnesium 2.5 mg/dL (1.6-2.6); Potassium 4.3 mmol/L (3.5-5.1)
[2022-03-11] MEDS ORDERED: DEXTROSE (50%) 50ML SYRG IV PRN (10:15)
[2022-03-11 10:29] LABS: Blast Cells 0; Eosinophils % (manual) 0 (0-7); Lymphocytes % (manual) 0 (10.0-50.0); Metamyelocytes % 0; Myelocytes % 0; Promyelocytes % 0; Reactive Lymphocytes 0
[2022-03-11 13:30] LABS: Band Neutrophils % (manual) 1; Basophils % (manual) 1 (0.0-2.0); Monocytes % (manual) 1 (0-12)
[2022-03-12] VITALS (26 sets, daily range): BP systolic 120–179; BP diastolic 49–93
[2022-03-12 04:48] LABS: Basophils # (auto) 0 10 ^3/uL (0-0.2); Basophils % (auto) 0.2 % (0.0-2.0); Eosinophils # (auto) 0 10 ^3/uL (0-0.8); Hematocrit 25.4 % (41.0-53.0); Hemoglobin 8.6 g/dL (13.5-17.5); Lymphocytes # (auto) 0.2 10 ^3/uL (0.4-5.4); Lymphocytes % (auto) 1.7 % (10.0-50.0); Mean Corpuscular Hgb Conc. 33.8 g/dL (32.0-36.0); Mean Corpuscular Volume 94.7 fL (80.0-100.0); Monocytes # (auto) 0.5 10 ^3/uL (0-1.3); Monocytes % (auto) 3.3 % (0.0-12.0); Neutrophils # (auto) 13.8 10 ^3/uL (1.6-8.6); Neutrophils % (auto) 94.8 % (37.0-80.0); Red Blood Cells 2.69 10^6/uL (4.5-5.90); White Blood Cell 14.5 10^3/uL (4.4-10.8)
[2022-03-12 04:57] LABS: Calcium 6.8 mg/dL (8.5-10.1); Potassium 4.8 mmol/L (3.5-5.1)
[2022-03-12] MEDS: ACCU-CHEK COMFORT CURVE STRIP VI SCH ×4 (06:28→23:16)
[2022-03-12] MEDS: methylPREDNISolone SOD SUCC 40 MG/ML VL IV SCH ×3 (06:28→20:34)
[2022-03-12] MEDS: INSULIN LANTUS (GLARGINE) 1 /0.01ml (100units/ml) SC SCH ×2 (07:01→23:07)
[2022-03-12] MEDS: InsuLIN REG 1unit/0.01ml Soln (100units/ml) SC SCH ×4 (07:01→22:00)
[2022-03-12] MEDS: IPRATROPIUM BROM 0.5 MG/2.5ML INH SOL NEB PRN (07:16)
[2022-03-12] MEDS: ALBUTEROL SULF 2.5 MG/0.5ML(0.5%) NEB SOLN NEB PRN (07:16)
[2022-03-12] MEDS: FAMOTIDINE (10MG/ML) 2ML VL IV SCH (08:59)
[2022-03-12] MEDS: cefTRIAXone 1GM/50ML D5W 50 ML IV SCH (08:59)
[2022-03-12] MEDS: FUROSEMIDE 40 MG/4 ML VIAL IV SCH (08:59)
[2022-03-12] MEDS: AZITHROMYCIN 500MG/ 250ML 250 ML IV SCH (09:00)
[2022-03-12] MEDS: ASPirin 81 mg TAB PO SCH (09:00)
[2022-03-12] MEDS: CARVEDILOL 3.125 MG TAB PO SCH ×2 (09:01→20:34)
[2022-03-12 10:09] LABS: Magnesium 2.6 mg/dL (1.6-2.6)
[2022-03-13] VITALS (23 sets, daily range): BP systolic 100–171; BP diastolic 48–97
[2022-03-13] MEDS: INSULIN LANTUS (GLARGINE) 1 /0.01ml (100units/ml) SC SCH ×2 (06:23→21:47)
[2022-03-13] MEDS: methylPREDNISolone SOD SUCC 40 MG/ML VL IV SCH ×3 (06:37→21:32)
[2022-03-13] MEDS: InsuLIN REG 1unit/0.01ml Soln (100units/ml) SC SCH ×4 (06:40→21:47)
[2022-03-13] MEDS: ACCU-CHEK COMFORT CURVE STRIP VI SCH ×4 (06:40→21:47)
[2022-03-13] MEDS ORDERED: SODIUM CHL 0.9% 1000 ML BAG XX ONE (07:00)
[2022-03-13] MEDS: FUROSEMIDE 40 MG/4 ML VIAL IV SCH (09:09)
[2022-03-13] MEDS: PANTOPRAZOLE 40 MG/10 ML VIAL INJ IV SCH (09:09)
[2022-03-13] MEDS: AZITHROMYCIN 500MG/ 250ML 250 ML IV SCH (09:10)
[2022-03-13] MEDS: CARVEDILOL 3.125 MG TAB PO SCH ×2 (09:10→21:32)
[2022-03-13] MEDS: ASPirin 81 mg TAB PO SCH (09:10)
[2022-03-13] MEDS: cefTRIAXone 1GM/50ML D5W 50 ML IV SCH (09:11)
[2022-03-13] MEDS: IPRATROPIUM BROM 0.5 MG/2.5ML INH SOL NEB PRN ×3 (09:36→18:51)
[2022-03-13] MEDS: ALBUTEROL SULF 2.5 MG/0.5ML(0.5%) NEB SOLN NEB PRN ×3 (09:36→18:51)
[2022-03-13 09:55] LABS: Hematocrit 28.9 % (41.0-53.0); Hemoglobin 9.3 g/dL (13.5-17.5); Mean Corpuscular Hemoglobin 31.9 pg (28.0-32.0); Mean Corpuscular Volume 99.5 fL (80.0-100.0); Red Blood Cells 2.91 10^6/uL (4.5-5.90); White Blood Cell 12.3 10^3/uL (4.4-10.8)
[2022-03-13 09:58] LABS: Basophils % (manual) 0 (0.0-2.0); Blast Cells 0; Eosinophils % (manual) 0 (0-7); Metamyelocytes % 0; Monocytes % (manual) 0 (0-12); Myelocytes % 0; Promyelocytes % 0; Reactive Lymphocytes 0
[2022-03-13] MEDS ORDERED: METOPROLOL TARTRATE 25 MG TAB PO ONE (10:15)
[2022-03-13 10:23] LABS: BUN/Creatinine Ratio 13.8; Calcium 6.7 mg/dL (8.5-10.1); Potassium 4.8 mmol/L (3.5-5.1)
[2022-03-13 10:26] LABS: Band Neutrophils % (manual) 2; Lymphocytes % (manual) 1 (10.0-50.0)
[2022-03-13] MEDS: AMIODARONE HCL 200 MG TAB PO SCH ×2 (13:21→21:31)
[2022-03-13] MEDS: ALBUMIN 25% 100 ML IV SCH ×2 (13:22→15:00)
[2022-03-13] MEDS: hydrALAZINE HCL 20 MG/ML VL IV PRN (18:05)
[2022-03-13] MEDS ORDERED: EPOETIN ALFA-EPBX 10,000 UNIT/1ML VIAL SC ONE (21:00)
[2022-03-13] MEDS: METOPROLOL TARTRATE 25 MG TAB PO SCH (22:35)
[2022-03-14] VITALS (15 sets, daily range): BP systolic 121–169; BP diastolic 38–76
[2022-03-14 04:41] LABS: Hematocrit 24.3 % (41.0-53.0); Hemoglobin 8.4 g/dL (13.5-17.5); Mean Corpuscular Hemoglobin 32.5 pg (28.0-32.0); Mean Corpuscular Hgb Conc. 34.6 g/dL (32.0-36.0); Mean Corpuscular Volume 94.1 fL (80.0-100.0); Red Blood Cells 2.59 10^6/uL (4.5-5.90); Red Cell Distribution Width 14.5 % (11.8-14.3); White Blood Cell 11.2 10^3/uL (4.4-10.8)
[2022-03-14 04:45] LABS: Basophils % (manual) 0 (0.0-2.0); Blast Cells 0; Eosinophils % (manual) 0 (0-7); Metamyelocytes % 0; Myelocytes % 0; Promyelocytes % 0; Reactive Lymphocytes 0
[2022-03-14 04:56] LABS: Calcium 6.7 mg/dL (8.5-10.1); Potassium 4.7 mmol/L (3.5-5.1)
[2022-03-14] MEDS: methylPREDNISolone SOD SUCC 40 MG/ML VL IV SCH ×3 (06:16→21:22)
[2022-03-14] MEDS: INSULIN LANTUS (GLARGINE) 1 /0.01ml (100units/ml) SC SCH ×2 (06:28→21:30)
[2022-03-14] MEDS: ACCU-CHEK COMFORT CURVE STRIP VI SCH ×4 (06:30→21:22)
[2022-03-14] MEDS: InsuLIN REG 1unit/0.01ml Soln (100units/ml) SC SCH ×4 (06:31→21:29)
[2022-03-14 06:45] LABS: Band Neutrophils % (manual) 1; Lymphocytes % (manual) 2 (10.0-50.0); Monocytes % (manual) 2 (0-12)
[2022-03-14] MEDS: hydrALAZINE HCL 20 MG/ML VL IV PRN (08:05)
[2022-03-14] MEDS: cefTRIAXone 1GM/50ML D5W 50 ML IV SCH (08:25)
[2022-03-14] MEDS: AMIODARONE HCL 200 MG TAB PO SCH ×2 (09:13→21:22)
[2022-03-14] MEDS: METOPROLOL TARTRATE 25 MG TAB PO SCH ×2 (09:13→21:21)
[2022-03-14] MEDS: AZITHROMYCIN 500MG/ 250ML 250 ML IV SCH (09:14)
[2022-03-14] MEDS: ASPirin 81 mg TAB PO SCH (09:14)
[2022-03-14] MEDS: PANTOPRAZOLE 40 MG/10 ML VIAL INJ IV SCH (09:14)
[2022-03-14] MEDS: FUROSEMIDE 40 MG/4 ML VIAL IV SCH (09:14)
[2022-03-14] MEDS ORDERED: ALPRAZolam 0.25 MG TAB PO PRN (10:00)
[2022-03-14] MEDS ORDERED: TEMAZEPAM 15 MG CAP PO PRN (10:00)
[2022-03-14] MEDS: ALBUTEROL SULF 2.5 MG/0.5ML(0.5%) NEB SOLN NEB PRN ×2 (12:14→16:34)
[2022-03-14] MEDS: IPRATROPIUM BROM 0.5 MG/2.5ML INH SOL NEB PRN ×2 (12:14→16:34)
[2022-03-14] MEDS: HALOPERIDOL 5 MG TAB PO SCH (21:22)
[2022-03-15] VITALS (7 sets, daily range): BP systolic 102–169; BP diastolic 45–76
[2022-03-15 04:54] LABS: Hematocrit 25.7 % (41.0-53.0); Hemoglobin 8.8 g/dL (13.5-17.5)
[2022-03-15] MEDS: methylPREDNISolone SOD SUCC 40 MG/ML VL IV SCH ×3 (06:45→21:43)
[2022-03-15] MEDS: ACCU-CHEK COMFORT CURVE STRIP VI SCH ×4 (06:45→21:57)
[2022-03-15] MEDS: INSULIN LANTUS (GLARGINE) 1 /0.01ml (100units/ml) SC SCH ×2 (06:47→21:56)
[2022-03-15] MEDS: InsuLIN REG 1unit/0.01ml Soln (100units/ml) SC SCH ×4 (06:48→21:55)
[2022-03-15] MEDS ORDERED: SODIUM CHL 0.9% 1000 ML BAG XX ONE (07:00)
[2022-03-15] MEDS: HALOPERIDOL 5 MG TAB PO SCH ×2 (10:00→21:44)
[2022-03-15] MEDS: AZITHROMYCIN 500MG/ 250ML 250 ML IV SCH (10:06)
[2022-03-15] MEDS: cefTRIAXone 1GM/50ML D5W 50 ML IV SCH (10:06)
[2022-03-15] MEDS: PANTOPRAZOLE 40 MG/10 ML VIAL INJ IV SCH (10:06)
[2022-03-15] MEDS: ASPirin 81 mg TAB PO SCH (10:07)
[2022-03-15] MEDS: METOPROLOL TARTRATE 25 MG TAB PO SCH ×2 (10:07→23:18)
[2022-03-15] MEDS: AMIODARONE HCL 200 MG TAB PO SCH ×2 (10:07→21:44)
[2022-03-15] MEDS: FUROSEMIDE 40 MG/4 ML VIAL IV SCH (10:15)
[2022-03-15] MEDS ORDERED: MIDAZOLAM HCL 2MG/2ML 2ml VIAL (1mg/ml) ONE (15:37)
[2022-03-15] MEDS ORDERED: fentaNYL CITRATE 100 MCG/2 ML VL ONE (15:37)
[2022-03-15] MEDS ORDERED: IOHEXOL 350 MG/ML 100ML IJ ONE (15:39)
[2022-03-15] MEDS ORDERED: ALBUMIN 25% 100 ML IV PRN (17:45)
[2022-03-15] MEDS ORDERED: EPOETIN ALFA-EPBX 10,000 UNIT/1ML VIAL SC ONE (21:00)
[2022-03-16] MEDS: ALBUTEROL SULF 2.5 MG/0.5ML(0.5%) NEB SOLN NEB PRN ×3 (04:31→22:43)
[2022-03-16] MEDS: IPRATROPIUM BROM 0.5 MG/2.5ML INH SOL NEB PRN ×3 (04:32→22:43)
[2022-03-16 05:00] VITALS: BP 100/61
[2022-03-16 05:42] LABS: BUN/Creatinine Ratio 14.6; Calcium 7.6 mg/dL (8.5-10.1); Potassium 5.1 mmol/L (3.5-5.1)
[2022-03-16] MEDS: methylPREDNISolone SOD SUCC 40 MG/ML VL IV SCH ×3 (06:48→21:28)
[2022-03-16] MEDS: ACCU-CHEK COMFORT CURVE STRIP VI SCH ×4 (06:49→21:30)
[2022-03-16] MEDS: InsuLIN REG 1unit/0.01ml Soln (100units/ml) SC SCH ×4 (06:49→23:19)
[2022-03-16] MEDS: INSULIN LANTUS (GLARGINE) 1 /0.01ml (100units/ml) SC SCH ×2 (07:00→23:19)
[2022-03-16 08:30] VITALS: BP 131/44
[2022-03-16] MEDS: cefTRIAXone 1GM/50ML D5W 50 ML IV SCH (09:30)
[2022-03-16] MEDS: FUROSEMIDE 40 MG/4 ML VIAL IV SCH (09:34)
[2022-03-16] MEDS: AMIODARONE HCL 200 MG TAB PO SCH ×2 (09:35→21:29)
[2022-03-16] MEDS: PANTOPRAZOLE 40 MG/10 ML VIAL INJ IV SCH (09:35)
[2022-03-16] MEDS: ASPirin 81 mg TAB PO SCH (09:35)
[2022-03-16] MEDS: METOPROLOL TARTRATE 25 MG TAB PO SCH ×2 (09:35→21:29)
[2022-03-16] MEDS: HALOPERIDOL 5 MG TAB PO SCH (09:37)
[2022-03-16] MEDS: AZITHROMYCIN 500MG/ 250ML 250 ML IV SCH (10:35)
[2022-03-16] MEDS ORDERED: ALPRAZolam 0.25 MG TAB PO PRN (12:00)
[2022-03-16 12:56] VITALS: BP 120/59
[2022-03-16 22:00] VITALS: BP 119/77
[2022-03-17] MEDS: IPRATROPIUM BROM 0.5 MG/2.5ML INH SOL NEB PRN ×3 (04:08→17:30)
[2022-03-17] MEDS: ALBUTEROL SULF 2.5 MG/0.5ML(0.5%) NEB SOLN NEB PRN ×3 (04:08→17:30)
[2022-03-17 05:00] VITALS: BP 141/62
[2022-03-17] MEDS: ACCU-CHEK COMFORT CURVE STRIP VI SCH ×4 (06:23→21:08)
[2022-03-17] MEDS: methylPREDNISolone SOD SUCC 40 MG/ML VL IV SCH ×3 (06:23→21:07)
[2022-03-17] MEDS: InsuLIN REG 1unit/0.01ml Soln (100units/ml) SC SCH ×4 (06:31→21:25)
[2022-03-17] MEDS: INSULIN LANTUS (GLARGINE) 1 /0.01ml (100units/ml) SC SCH ×2 (06:53→21:25)
[2022-03-17] MEDS ORDERED: SODIUM CHL 0.9% 1000 ML BAG XX ONE (07:00)
[2022-03-17] MEDS: AZITHROMYCIN 500MG/ 250ML 250 ML IV SCH (08:51)
[2022-03-17] MEDS: PANTOPRAZOLE 40 MG/10 ML VIAL INJ IV SCH (08:51)
[2022-03-17] MEDS: ASPirin 81 mg TAB PO SCH (08:51)
[2022-03-17] MEDS: cefTRIAXone 1GM/50ML D5W 50 ML IV SCH (08:51)
[2022-03-17 09:00] VITALS: BP 153/63
[2022-03-17] MEDS: AMIODARONE HCL 200 MG TAB PO SCH ×2 (12:14→21:07)
[2022-03-17 13:00] VITALS: BP 155/60
[2022-03-17] MEDS: FUROSEMIDE 40 MG/4 ML VIAL IV SCH (15:31)
[2022-03-17] MEDS: METOPROLOL TARTRATE 25 MG TAB PO SCH ×2 (15:32→21:20)
[2022-03-17 16:55] VITALS: BP 147/67
[2022-03-17] MEDS ORDERED: HALOPERIDOL LACTATE 5 MG/ML INJ VIAL IM PRN (19:30)
[2022-03-17] MEDS ORDERED: FUROSEMIDE 100 MG/10ML VIAL IV ONE (19:30)
[2022-03-17] MEDS ORDERED: EPOETIN ALFA-EPBX 10,000 UNIT/1ML VIAL SC ONE (21:00)
[2022-03-17 22:00] VITALS: BP 182/71
[2022-03-17] MEDS: hydrALAZINE HCL 20 MG/ML VL IV PRN (23:24)
[2022-03-18] VITALS (7 sets, daily range): BP systolic 172–182; BP diastolic 56–95
[2022-03-18] MEDS: methylPREDNISolone SOD SUCC 40 MG/ML VL IV SCH ×3 (05:23→23:56)
[2022-03-18] MEDS: hydrALAZINE HCL 20 MG/ML VL IV PRN ×2 (05:25→12:26)
[2022-03-18 05:51] LABS: Calcium 7.5 mg/dL (8.5-10.1)
[2022-03-18] MEDS: ACCU-CHEK COMFORT CURVE STRIP VI SCH ×4 (06:23→22:00)
[2022-03-18 06:31] LABS: Potassium 6.3 mmol/L (3.5-5.1)
[2022-03-18] MEDS: INSULIN LANTUS (GLARGINE) 1 /0.01ml (100units/ml) SC SCH ×2 (06:33→22:00)
[2022-03-18] MEDS: InsuLIN REG 1unit/0.01ml Soln (100units/ml) SC SCH ×4 (06:33→22:00)
[2022-03-18 07:48] LABS: Basophils # (auto) 0 10 ^3/uL (0-0.2); Basophils % (auto) 0.1 % (0.0-2.0); Eosinophils # (auto) 0 10 ^3/uL (0-0.8); Hematocrit 28.4 % (41.0-53.0); Hemoglobin 9.8 g/dL (13.5-17.5); Lymphocytes # (auto) 0.4 10 ^3/uL (0.4-5.4); Lymphocytes % (auto) 2.3 % (10.0-50.0); Mean Corpuscular Hemoglobin 32.1 pg (28.0-32.0); Mean Corpuscular Hgb Conc. 34.4 g/dL (32.0-36.0); Mean Corpuscular Volume 93.2 fL (80.0-100.0); Monocytes # (auto) 0.1 10 ^3/uL (0-1.3); Monocytes % (auto) 0.6 % (0.0-12.0); Neutrophils # (auto) 14.8 10 ^3/uL (1.6-8.6); Nucleated Red Blood Cells % 0.1 %; Red Blood Cells 3.05 10^6/uL (4.5-5.90); Red Cell Distribution Width 14.6 % (11.8-14.3); White Blood Cell 15.2 10^3/uL (4.4-10.8)
[2022-03-18] MEDS ORDERED: SODIUM CHL 0.9% 1000 ML BAG XX ONE (08:30)
[2022-03-18] MEDS: cefTRIAXone 1GM/50ML D5W 50 ML IV SCH (09:00)
[2022-03-18] MEDS: PANTOPRAZOLE 40 MG/10 ML VIAL INJ IV SCH (10:00)
[2022-03-18] MEDS: AZITHROMYCIN 500MG/ 250ML 250 ML IV SCH (10:00)
[2022-03-18] MEDS: FUROSEMIDE 40 MG/4 ML VIAL IV SCH (10:00)
[2022-03-18] MEDS: AMIODARONE HCL 200 MG TAB PO SCH ×2 (10:00→23:56)
[2022-03-18] MEDS: ASPirin 81 mg TAB PO SCH (10:00)
[2022-03-18] MEDS: METOPROLOL TARTRATE 25 MG TAB PO SCH ×2 (10:00→23:57)
[2022-03-18] MEDS: ALBUTEROL SULF 2.5 MG/0.5ML(0.5%) NEB SOLN NEB PRN (18:33)
[2022-03-18] MEDS: IPRATROPIUM BROM 0.5 MG/2.5ML INH SOL NEB PRN (18:33)
[2022-03-18] MEDS ORDERED: EPOETIN ALFA-EPBX 10,000 UNIT/1ML VIAL SC ONE (21:00)
[2022-03-19 05:00] VITALS: BP 175/47
[2022-03-19] MEDS: methylPREDNISolone SOD SUCC 40 MG/ML VL IV SCH (06:00)
[2022-03-19] MEDS: InsuLIN REG 1unit/0.01ml Soln (100units/ml) SC SCH ×2 (06:48→11:30)
[2022-03-19] MEDS: ACCU-CHEK COMFORT CURVE STRIP VI SCH ×2 (06:48→12:20)
[2022-03-19] MEDS: INSULIN LANTUS (GLARGINE) 1 /0.01ml (100units/ml) SC SCH (06:49)
[2022-03-19 08:20] VITALS: BP 176/50
[2022-03-19] MEDS ORDERED: cloNIDine HCL 0.1 MG TAB PO PRN (08:45)
[2022-03-19] MEDS: cefTRIAXone 1GM/50ML D5W 50 ML IV SCH (09:00)
[2022-03-19] MEDS: AZITHROMYCIN 500MG/ 250ML 250 ML IV SCH (10:00)
[2022-03-19] MEDS: FUROSEMIDE 40 MG/4 ML VIAL IV SCH (10:00)
[2022-03-19] MEDS: PANTOPRAZOLE 40 MG/10 ML VIAL INJ IV SCH (10:00)
[2022-03-19 12:15] VITALS: BP 141/57
[2022-03-19] MEDS: ASPirin 81 mg TAB PO SCH (13:00)
[2022-03-19] MEDS: AMIODARONE HCL 200 MG TAB PO SCH (13:00)
[2022-03-19] MEDS: METOPROLOL TARTRATE 25 MG TAB PO SCH (13:01)
== END 2022-03-19 16:20 | disposition hospice, home (50) | DRG 252 ==
LOC: EDUNIT# 12:51 → ER 12:57 → TELE 22:15 → ICU WEST 03-09 07:25 → TELE-WESTW 03-15 14:08
PROVIDERS: ADMIT Nurse Practitioner Family; ATTEND Internal Medicine Geriatric Medicine
PROC: 5A09357 Assistance with Respiratory Ventilation, Less than 24 Consecutive Hours, Continuous Positive Airway Pressure (ICD-10-PCS; principal; 2022-03-08)
PROC: 05HC33Z Insertion of Infusion Device into Left Basilic Vein, Percutaneous Approach (ICD-10-PCS; 2022-03-08)
PROC: B54NZZA Ultrasonography of Left Upper Extremity Veins, Guidance (ICD-10-PCS; 2022-03-08)
PROC: 0W9930Z Drainage of Right Pleural Cavity with Drainage Device, Percutaneous Approach (ICD-10-PCS; 2022-03-08)
PROC: 5A1D70Z Performance of Urinary Filtration, Intermittent, Less than 6 Hours Per Day (ICD-10-PCS; 2022-03-12)
PROC: 5A09357 Assistance with Respiratory Ventilation, Less than 24 Consecutive Hours, Continuous Positive Airway Pressure (ICD-10-PCS; 2022-03-13)
PROC: 5A1D70Z Performance of Urinary Filtration, Intermittent, Less than 6 Hours Per Day (ICD-10-PCS; 2022-03-13)
PROC: 5A1D70Z Performance of Urinary Filtration, Intermittent, Less than 6 Hours Per Day (ICD-10-PCS; 2022-03-14)
PROC: 05753ZZ Dilation of Right Subclavian Vein, Percutaneous Approach (ICD-10-PCS; 2022-03-15)
PROC: 5A1D70Z Performance of Urinary Filtration, Intermittent, Less than 6 Hours Per Day (ICD-10-PCS; 2022-03-15)
PROC: B51M1ZZ Fluoroscopy of Right Upper Extremity Veins using Low Osmolar Contrast (ICD-10-PCS; 2022-03-15)
DX: T82.855A Stenosis of coronary artery stent, initial encounter (principal); J96.21 Acute and chronic respiratory failure with hypoxia; N18.6 End stage renal disease; J93.83 Other pneumothorax; E87.1 Hypo-osmolality and hyponatremia; J98.11 Atelectasis; N17.9 Acute kidney failure, unspecified; I13.2 Hypertensive heart and chronic kidney disease with heart failure and with stage 5 chronic kidney disease, or end stage renal disease; I50.30 Unspecified diastolic (congestive) heart failure; Z20.822 Contact with and (suspected) exposure to COVID-19; D69.6 Thrombocytopenia, unspecified; E78.5 Hyperlipidemia, unspecified; E87.5 Hyperkalemia; E87.8 Other disorders of electrolyte and fluid balance, not elsewhere classified; E11.22 Type 2 diabetes mellitus with diabetic chronic kidney disease; D63.1 Anemia in chronic kidney disease; I48.91 Unspecified atrial fibrillation; W18.39XA Other fall on same level, initial encounter; Z99.2 Dependence on renal dialysis; Z51.5 Encounter for palliative care; Z79.899 Other long term (current) drug therapy; Z82.3 Family history of stroke; Z82.5 Family history of asthma and other chronic lower respiratory diseases; Z83.3 Family history of diabetes mellitus; Z91.15 Patient's noncompliance with renal dialysis; Y93.89 Activity, other specified; Y92.89 Other specified places as the place of occurrence of the external cause; Y99.8 Other external cause status
CPT/HCPCS: 32556; 36415; 36600; 36901; 37248; 71045; 71250; 76942; 80048; 80053; 81001; 82306; 82805; 82962; 83036; 83605; 83735; 83880; 83970; 84100; 84484; 85007; 85014; 85018; 85025; 85027; 85610; 85730; 87040; 87077; 87081; 87186; 87340; 87426; 87493; 87804; 90935; 93005; 93971; 94640; 96365; 96367; 96375; 97110; 97116; 97163; 97530; 99152; 99153; 99291; C9113; G0378; J0696; J1642; J1815; J2001; J2250; J3490; P9047